=== PATIENT | male | born 1980 | race African-American/Black ===

== ENCOUNTER 2017-06-21 11:39 | Inpatient (IN) | payer OTHER ==
[2017-06-21 12:47] VITALS: BMI 29.2
--- NOTE | 2017-06-21 13:20 | HP ---
COWS - Scale Resting Pulse: 0= [place] 80 or Below Sweatin= Chills/Flushing Restless Observation: 3= Extraneous Movement Pupil Size: 2= Moderately Dilated Bone or Joint Aches: 2= Severe Diffuse Aches Runny Nose/ Eye Tearin= Runny Nose/Eyes GI Upset > 30mins: 3= Vomiting/Diarrhea Tremor Observation: 2= Slight Tremor Visible Yawning Observation: 2= >3x During Session Anxiety or Irritability: 2=Irritable/Anxious Goose Flesh Skin: 0=Smooth Skin COWS Score: 19 Admission ROS S - HPI Chief Complaint: I NEED HELP TO STOP USING HEROIN Allergies/Adverse Reactions: Allergies Allergy/AdvReac Type Severity Reaction Status Date / Time No Known Allergies Allergy Verified 06/21/17 13:13 History of Present Illness: THIS 36 YEARS OLD MALE WITH HEROIN DEPENDENCE,WITHDRAWAL SYMPTOM,SEEKING DETOX, NEVER BEEN IN DETOX BEFORE NICOTINE DEPENDENCE S/P REPAIR OF RIGHT INGUINAL HERNIA Exam Limitations: No Limitations - Ebola screening Have you traveled outside of the country in the last 21 days: No Have you had contact with anyone from an Ebola affected area: No Have you been sick,other than usual withdrawal symptoms: No Do you have a fever: No - Review of Systems Constitutional: Chills, Diaphoresis, Loss of Appetite, Malaise, Night Sweats, Changes in sleep, Weakness, Unintentional Wgt. Loss EENT: reports: Tearing, Nose Congestion Respiratory: reports: No Symptoms reported Cardiac: reports: No Symptoms Reported GI: reports: Diarrhea, Nausea, Vomiting (S/P REPAIR RIGHT INGUINAL HERNIA), Abdominal cramping : reports: No Symptoms Reported Musculoskeletal: reports: Back Pain, Joint Pain, Muscle Pain, Joint Stiffness Neuro: reports: Headache, Tremors Endocrine: reports: No Symptoms Reported Hematology: reports: No Symptoms Reported Psychiatric: reports: Depressed Patient History - Patient Medical History Hx Anemia: No Hx Asthma: No Hx Chronic Obstructive Pulmonary Disease (COPD): No Hx Cancer: No Hx Cardiac Disorders: No Hx Congestive Heart Failure: No Hx Hypertension: No Hx Hypercholesterolemia: No Hx Pacemaker: No HX Cerebrovascular Accident: No Hx Seizures: No Hx Dementia: No Hx Diabetes: No Hx Gastrointestinal Disorders: No Hx Liver Disease: No Hx Genitourinary Disorders: No Hx Sexually Transmitted Disorders: No Hx Renal Disease (ESRD): No Hx Thyroid Disease: No Hx Human Immunodeficiency Virus (HIV): No (2014 NEGATIVE) Hx Hepatitis C: No Hx Depression: Yes Hx Suicide Attempt: No Hx Bipolar Disorder: No Hx Schizophrenia: No Other Medical History: NO SUICIDAL,NO HOMICIDAL - Patient Surgical History Past Surgical History: Yes Other Surgical History: RIGHT INGUINAL HERNIA REPAIR OF 6 YEARS - PPD History Previous Implant?: No Documented Results: Negative w/o proof Implanted On Prior [facility] Admission?: Yes PPD to be Administered?: No - Smoking Cessation Smoking history: Current every day smoker Have you smoked in the past 12 months: Yes Aproximately how many cigarettes per day: 20 Cigars Per Day: 0 Hx Chewing Tobacco Use: No Initiated information on smoking cessation: Yes 'Breaking Loose' booklet given: 06/21/17 - Substance & Tx. History Hx Alcohol Use: No Hx Substance Use: Yes Substance Use Type: Heroin Hx Substance Use Treatment: No Family Disease History - Family Disease History Family History: Denies Admission Physical Exam [facility] - Vital Signs Vital Signs: Vital Signs - 24 hr 06/21/17 12:42 Temperature 97 F L Pulse Rate 75 Respiratory 20 Rate Blood Pressure 106/60 - Physical General Appearance: Yes: Moderate Distress, Tremorous, Irritable, Sweating, Anxious HEENTM: Yes: Normal ENT Inspection, Normocephalic, BARBARA, Pharynx Normal Respiratory: Yes: Lungs Clear, Normal Breath Sounds, No Respiratory Distress Neck: Yes: Within Normal Limits, Supple, Trachea in good position Breast: Yes: Within Normal Limits Cardiology: Yes: Within Normal Limits, Regular Rhythm, Regular Rate, S1, S2 Abdominal: Yes: Within Normal Limits, Normal Bowel Sounds, Non Tender, Flat, Soft Genitourinary: Yes: Within Normal Limits Back: Yes: Within Normal Limits, Normal Inspection, Muscle Spasm Musculoskeletal: Yes: Back pain, Joint Stiffness, Muscle Pain Extremities: Yes: Normal Capillary Refill, Normal Range of Motion, Tremors Neurological: Yes: Within Normal Limits, billing specialist II-XII NML intact, Fully Oriented, Alert, Motor Strength 5/5 Integumentary: Yes: Dry Lymphatic: Yes: Within Normal Limits - Diagnostic (1) Opioid dependence with withdrawal Current Visit: Yes Status: Acute (2) Nicotine dependence Current Visit: Yes Status: Acute (3) Weight loss Current Visit: Yes Status: Acute (4) Depression Current Visit: Yes Status: Acute (5) Insomnia Current Visit: Yes Status: Acute Cleared for Admission [facility] - Detox or Rehab [facility] Level of Care: Medically Managed Detox Regimen/Protocol: Methadone [facility] Breath Alcohol Content Breath Alcohol Content: 0 Urine Drug Screen - Results Drug Screen Negative: No Urine Drug Screen Results: THC-Marijuana, STACIE-Cocaine, OPI-Opiates
[2017-06-21] MEDS ORDERED: MAGNESIUM HYDROX 2400MG/30ML ORAL SUSPENSION 30 ML CUP PO PRN (13:29)
[2017-06-21] MEDS ORDERED: MENTHOL/PHENOL 1 EACH UD MM PRN (13:29)
[2017-06-21] MEDS ORDERED: MAGNESIUM CITRATE 300 ML BOTTLE PO PRN (13:29)
[2017-06-21] MEDS ORDERED: hydrOXYzine PAMOATE 25 MG CAPSULE (FP) PO PRN (13:29)
[2017-06-21] MEDS ORDERED: MAG HYDROX/AL HYDROX/SIMETH 30 ML UNIT-DOSE CUP PO PRN (13:29)
[2017-06-21] MEDS ORDERED: LOPERAMIDE HCL 2 MG CAPSULE PO PRN (13:29)
[2017-06-21] MEDS ORDERED: ACETAMINOPHEN 325 MG TABLET (FP) PO PRN (13:29)
[2017-06-21] MEDS ORDERED: guaiFENesin/D-METHORPHAN HB 10 ML UNIT-DOSE CUPS PO PRN (13:29)
[2017-06-21] MEDS ORDERED: IBUPROFEN 400 MG TABLET (FP) PO PRN (13:29)
[2017-06-21] MEDS ORDERED: P-EPHED 60MG/TRIPROLIDI 2.5MG TABLET PO PRN (13:29)
[2017-06-21] MEDS ORDERED: METHADONE HCL 10 MG TABLET (FOR DETOX USE ONLY) PO ONE ×2 (14:05→23:00)
[2017-06-21] MEDS: NICOTINE 21 MG/24 HOURS TOPICAL PATCH TD SCH (15:25)
[2017-06-21] MEDS: cloNIDine HCL 0.1 MG TABLET PO SCH ×2 (15:25→22:21)
[2017-06-21] MEDS: diazePAM 5 MG TABLET PO PRN ×2 (15:25→22:21)
--- NOTE | 2017-06-21 15:27 | CONSULT ---
[facility] Psychiatric Consult - Data Date of interview: 06/21/17 Admission source: [facility] Identifying data: First admission to [facility] for this 36 y/o [place]-born male seeking detox treatment on for heroin,cocaine and cannabis dependence.Patient is ,a father of four,domiciled,unemployed and supported by relatives. Substance Abuse History: Confirmed by patient in this interview.Smoking history : Current every day smoker. Have you smoked in the past 12 months: Yes. Aproximately how many cigarettes per day: 20. Cigars Per Day: 0. Hx Chewing Tobacco Use: No. Initiated information on smoking cessation: Yes. 'Breaking Loose' booklet given: 06/21/17. - Substance & Tx. History. Hx Alcohol Use: No. Hx Substance Use: Yes. Substance Use Type: Heroin. Hx Substance Use Treatment: No Medical History: Patient endorses good general health.Noted history of right inguinal herniorraphy. Psychiatric History: Patient denies. Physical/Sexual Abuse/Trauma History: Patient denies. Additional Comment: Urine Drug Screen Results: THC-Marijuana, STACIE-Cocaine, OPI- Opiates.Noted. Mental Status Exam - Mental Status Exam Alert and Oriented to: Time, Place, Person Cognitive Function: Good Patient Appearance: Well Groomed Mood: Hopeful, Euthymic Affect: Appropriate, Normal Range Patient Behavior: Fatigued, Appropriate, Cooperative Speech Pattern: Clear, Appropriate Voice Loudness: Normal Thought Process: Intact, Goal Oriented Thought Disorder: Not Present Hallucinations: Denies Suicidal Ideation: Denies Homicidal Ideation: Denies Insight/Judgement: Poor Sleep: Poorly, Difficulty falling asleep Appetite: Good Muscle strength/Tone: Normal Gait/Station: Normal Psychiatric Findings - Problem List ([place] 1, 2,3) (1) Opioid dependence with withdrawal Current Visit: Yes Status: Acute (2) Nicotine dependence Current Visit: Yes Status: Acute (3) Cannabis dependence Current Visit: Yes Status: Acute (4) Cocaine dependence Current Visit: Yes Status: Acute (5) Insomnia Current Visit: Yes Status: Acute - Initial Treatment Plan Initial Treatment Plan: Psychoeducation and support provided in this session.Orientation to the unit.Sleep hygiene discussed with the patient.Detoxification initiated.Benadryl 50 mg po hs prn.Ordered.Side effects/ benefits discussed.Mr Rivers is agreable with this careplan.Daily monitoring of clinical course.
--- NOTE | 2017-06-21 15:47 | EKG ---
Test Reason : Blood Pressure : / mmHG Vent. Rate : 063 BPM Atrial Rate : 063 BPM P-R Int : 180 ms QRS Dur : 108 ms QT Int : 424 ms P-R-T Axes : 052 065 059 degrees QTc Int : 433 ms NORMAL SINUS RHYTHM NORMAL ECG NO PREVIOUS ECGS AVAILABLE Confirmed by SAURABH COLUNGA, MIRLANDE ([id number]) on 06/21/2017 3:47:27 PM Referred By: Confirmed By:MIRLANDE WILEY MD
[2017-06-21] MEDS ORDERED: diphenhydrAMINE HCL 50 MG CAPSULE PO PRN (22:00)
[2017-06-21] MEDS: THIAMINE HCL 100 MG TABLET (FP) PO SCH (22:20)
[2017-06-21] MEDS: CYCLOBENZAPRINE HCL 10 MG TABLET (FP) PO PRN (22:21)
[2017-06-21] MEDS: NICOTINE POLACRILEX 2 MG GUM BUC PRN (22:25)
[2017-06-21] MEDS ORDERED: TRIMETHOBENZAMIDE HCL 200MG/2ML INJ IM ONE (23:02)
[2017-06-21 23:41] LABS: URINE APPEARANCE CLOUDY; URINE BILIRUBIN NEGATIVE (NEGATIVE); URINE BLOOD NEGATIVE (NEGATIVE); URINE COLOR YELLOW; URINE GLUCOSE (UA) NEGATIVE (NEGATIVE); URINE KETONE NEGATIVE (NEGATIVE); URINE LEUK ESTERASE NEGATIVE (NEGATIVE); URINE NITRITE NEGATIVE (NEGATIVE); URINE PROTEIN NEGATIVE (NEGATIVE)
[2017-06-22] MEDS ORDERED: METHADONE HCL 10 MG TABLET (FOR DETOX USE ONLY) PO ONE (10:00)
[2017-06-22 10:23] LABS: HEMATOCRIT 37.7 % (35.4-49); MCH 22.9 pg (25.7-33.7); MCHC 31.7 g/dl (32.0-35.9); MEAN CELL VOLUME 72.1 fl (80-96); MEAN PLT VOLUME 8.9 fl (7.5-11.1); PLATELET COUNT 218 K/MM3 (134-434); RBC 5.24 M/mm3 (4.00-5.60); RDW 15.7 % (11.9-15.9); WHITE BLOOD COUNT 9.8 K/mm3 (4.0-10.0)
[2017-06-22 10:39] LABS: CHLORIDE 103 mmol/L (98-107); POTASSIUM 3.9 mmol/L (3.5-5.1); SODIUM 140 mmol/L (136-145)
[2017-06-22] MEDS: PRENATAL VITAMINS W/ FOLIC ACID TABLET (FP) PO SCH (10:39)
[2017-06-22] MEDS: NICOTINE 21 MG/24 HOURS TOPICAL PATCH TD SCH (10:40)
[2017-06-22] MEDS: cloNIDine HCL 0.1 MG TABLET PO SCH ×2 (10:42→22:28)
[2017-06-22 10:48] LABS: ALBUMIN 4.1 g/dl (3.4-5.0); ALK PHOS 84 U/L (45-117); ANION GAP 4 (8-16); BILIRUBIN,TOTAL 0.3 mg/dL (0.2-1.0); BLOOD UREA NITROGEN 14 mg/dL (7-18); CALCIUM 9.1 mg/dL (8.5-10.1); CO2 33 mmol/L (21-32); CREATININE 0.9 mg/dL (0.7-1.3); GLUCOSE,RANDOM 110 mg/dL (74-106); SGOT/AST 8 U/L (15-37); SGPT/ALT 21 U/L (12-78); TOT PROT 7.1 g/dl (6.4-8.2)
--- NOTE | 2017-06-22 12:35 | PN ---
[facility] CIWA - CIWA Score Nausea/Vomitin-Mild Nausea/No Vomiting Muscle Tremors: 3 Anxiety: 4-Mod. Anxious/Guarded Agitation: 3 Paroxysmal Sweats: 1-Minimal Palms Moist Orientation: 0-Oriented Tacttile Disturbances: 1-Very Mild Itch/Numbness Auditory Disturbances: 0-None Visual Disturbances: 0-None Headache: 1-Very Mild CIWA-Ar Total Score: 14
--- NOTE | 2017-06-22 12:40 | PN ---
[facility] Progress Note (SOAP) Subjective: PT SEEN TODAY LYING IN BED, WITH C/O OF FATIGUE AND RESTLESSNESS. Objective: 06/22/17 12:37 PT IN NAD. Assessment: 06/22/17 12: OPIATE WITHDRAWAL. Plan: CONTINUE OPIATE WITHDRAWAL PROTOCOL.
[2017-06-22] MEDS: NICOTINE POLACRILEX 2 MG GUM BUC PRN (21:32)
[2017-06-22] MEDS: diazePAM 5 MG TABLET PO PRN (22:28)
[2017-06-22] MEDS: CYCLOBENZAPRINE HCL 10 MG TABLET (FP) PO PRN (22:28)
[2017-06-22] MEDS: THIAMINE HCL 100 MG TABLET (FP) PO SCH (22:28)
[2017-06-23] MEDS: diazePAM 5 MG TABLET PO PRN ×3 (09:05→22:24)
[2017-06-23] MEDS ORDERED: METHADONE HCL 5 MG TABLET (FOR DETOX USE ONLY) PO ONE (10:00)
[2017-06-23] MEDS: PRENATAL VITAMINS W/ FOLIC ACID TABLET (FP) PO SCH (10:05)
[2017-06-23] MEDS: cloNIDine HCL 0.1 MG TABLET PO SCH (10:06)
[2017-06-23] MEDS: NICOTINE 21 MG/24 HOURS TOPICAL PATCH TD SCH (10:35)
--- NOTE | 2017-06-23 16:59 | PN ---
S COWS - Scale Resting Pulse: 0= [place] 80 or Below Sweatin=Flushed/Facial Moisture Restless Observation: 0= Sits Still Pupil Size: 2= Moderately Dilated Bone or Joint Aches: 1= Mild Discomfort Runny Nose/ Eye Tearin= Nasal Congestion GI Upset > 30mins: 0= None Tremor Observation of Outstretched Hands: 2= Slight Tremor Visible Yawning Observation: 1= 1-2x During Session Anxiety or Irritability: 2=Irritable/Anxious Goose Flesh Skin: 0=Smooth Skin COWS Score: 11 S Progress Note (SOAP) Subjective: C/O SWEATS, ANXIETY. FATIGUE. Objective: 06/23/17 16:56 Vital Signs Temperature 97.3 F L 06/23/17 09:22 Pulse Rate 65 06/23/17 09:22 Respiratory Rate 18 06/23/17 09:22 Blood Pressure 92/62 06/23/17 09:22 O2 Sat by Pulse Oximetry (%) Laboratory Last Values WBC 9.8 K/mm3 (4.0-10.0) 06/22/17 06:00 RBC 5.24 M/mm3 (4.00-5.60) 06/22/17 06:00 Hgb 12.0 GM/dL (11.7-16.9) 06/22/17 06:00 Hct 37.7 % (35.4-49) 06/22/17 06:00 MCV 72.1 fl (80-96) L 06/22/17 06:00 MCH 22.9 pg (25.7-33.7) L 06/22/17 06:00 MCHC 31.7 g/dl (32.0-35.9) L 06/22/17 06:00 RDW 15.7 % (11.9-15.9) 06/22/17 06:00 Plt Count 218 K/MM3 (134-434) 06/22/17 06:00 MPV 8.9 fl (7.5-11.1) 06/22/17 06:00 Sodium 140 mmol/L (136-145) 06/22/17 06:00 Potassium 3.9 mmol/L (3.5-5.1) 06/22/17 06:00 Chloride 103 mmol/L (98-107) 06/22/17 06:00 Carbon Dioxide 33 mmol/L (21-32) H 06/22/17 06:00 Anion Gap 4 (8-16) L 06/22/17 06:00 BUN 14 mg/dL (7-18) 06/22/17 06:00 Creatinine 0.9 mg/dL (0.7-1.3) 06/22/17 06:00 Creat Clearance w eGFR > 60 (>60) 06/22/17 06:00 Random Glucose 110 mg/dL (74-106) H 06/22/17 06:00 Calcium 9.1 mg/dL (8.5-10.1) 06/22/17 06:00 Total Bilirubin 0.3 mg/dL (0.2-1.0) 06/22/17 06:00 AST 8 U/L (15-37) L 06/22/17 06:00 ALT 21 U/L (12-78) 06/22/17 06:00 Alkaline Phosphatase 84 U/L (45-117) 06/22/17 06:00 Total Protein 7.1 g/dl (6.4-8.2) 06/22/17 06:00 Albumin 4.1 g/dl (3.4-5.0) 06/22/17 06:00 Urine Color Yellow 06/21/17 23:25 Urine Appearance Cloudy 06/21/17 23:25 Urine pH 5.0 (5.0-8.0) 06/21/17 23:25 Ur Specific [place] 1.025 (1.001-1.035) 06/21/17 23:25 Urine Protein Negative (NEGATIVE) 06/21/17 23:25 Urine Glucose (UA) Negative (NEGATIVE) 06/21/17 23:25 Urine Ketones Negative (NEGATIVE) 06/21/17 23:25 Urine Blood Negative (NEGATIVE) 06/21/17 23:25 Urine Nitrite Negative (NEGATIVE) 06/21/17 23:25 Urine Bilirubin Negative (NEGATIVE) 06/21/17 23:25 Urine Urobilinogen 2.0 mg/dL (0.2-1.0) 06/21/17 23:25 Ur Leukocyte Esterase Negative (NEGATIVE) 06/21/17 23:25 RPR Titer Nonreactive (NONREACTIVE) 06/22/17 06:00 HIV 1&2 Antibody Screen Negative 06/22/17 06:00 HIV P24 Antigen Negative 06/22/17 06:00 Assessment: 06/23/17 16:56 WITHDRAWAL SX Plan: CONTINUE DETOX INCREASE PO FLUIDS. CHANGE CLONIDINE TO PRN.
[2017-06-23] MEDS ORDERED: cloNIDine HCL 0.1 MG TABLET PO PRN (22:00)
[2017-06-23] MEDS: THIAMINE HCL 100 MG TABLET (FP) PO SCH (22:23)
[2017-06-23] MEDS: CYCLOBENZAPRINE HCL 10 MG TABLET (FP) PO PRN (22:24)
[2017-06-24 05:56] VITALS: BP 90/56; PULSE 54; TEMP 97.2
[2017-06-24] MEDS ORDERED: METHADONE HCL 10 MG TABLET (FOR DETOX USE ONLY) PO ONE (09:03)
[2017-06-24] MEDS: PRENATAL VITAMINS W/ FOLIC ACID TABLET (FP) PO SCH (09:46)
[2017-06-24] MEDS ORDERED: METHADONE HCL 5 MG TABLET (FOR DETOX USE ONLY) PO ONE (10:00)
[2017-06-24] MEDS: NICOTINE 21 MG/24 HOURS TOPICAL PATCH TD SCH (10:34)
--- NOTE | 2017-06-24 19:14 | DS ---
[facility] Detox Discharge Summary Admission Date: 06/21/17 Discharge Date: 06/24/17 - History Present History: Cannabis Dependence, Opioid Dependence Additional Comments: AT TIME OF DISCHARGE, PATIENT REPORTS THAT CURRENT DETOX SYMPTOMS ARE MINIMAL AND THAT HE FEELS WELL OVERALL. PATIENT RETURNING HOME TO RETURN TO WORK. PATIENT ADVISED TO CONSIDER LOCAL 12-STEP / NA OUTPATIENT SUPPORT GROUPS FOR AFTERCARE. PATIENT WAS DISCHARGED FROM DETOX UNIT IN STABLE MEDICAL CONDITION. Pertinent Past History: Depression, Insomnia, Weight Loss, Nicotine Dependence. - Physical Exam Results Vital Signs: Vital Signs Temperature 97.2 F L 06/24/17 05:55 Pulse Rate 54 L 06/24/17 05:55 Respiratory Rate 16 06/24/17 05:55 Blood Pressure 90/56 06/24/17 05:55 O2 Sat by Pulse Oximetry (%) Pertinent Admission Physical Exam Findings: WITHDRAWAL SYMPTOMS. Laboratory Tests 06/21/17 06/22/17 06/22/17 23:25 06:00 06:00 WBC 9.8 RBC 5.24 Hgb 12.0 Hct 37.7 MCV 72.1 L MCH 22.9 L MCHC 31.7 L RDW 15.7 Plt Count 218 MPV 8.9 Sodium Potassium Chloride Carbon Dioxide Anion Gap BUN Creatinine Creat Clearance w eGFR Random Glucose Calcium Total Bilirubin AST ALT Alkaline Phosphatase Total Protein Albumin Urine Color Yellow Urine Appearance Cloudy Urine pH 5.0 Ur Specific [place] 1.025 Urine Protein Negative Urine Glucose (UA) Negative Urine Ketones Negative Urine Blood Negative Urine Nitrite Negative Urine Bilirubin Negative Urine Urobilinogen 2.0 Ur Leukocyte Esterase Negative RPR Titer HIV 1&2 Antibody Screen Negative HIV P24 Antigen Negative 06/22/17 06/22/17 06:00 06:00 WBC RBC Hgb Hct MCV MCH MCHC RDW Plt Count MPV Sodium 140 Potassium 3.9 Chloride 103 Carbon Dioxide 33 H Anion Gap 4 L BUN 14 Creatinine 0.9 Creat Clearance w eGFR > 60 Random Glucose 110 H Calcium 9.1 Total Bilirubin 0.3 AST 8 L ALT 21 Alkaline Phosphatase 84 Total Protein 7.1 Albumin 4.1 Urine Color Urine Appearance Urine pH Ur Specific [place] Urine Protein Urine Glucose (UA) Urine Ketones Urine Blood Urine Nitrite Urine Bilirubin Urine Urobilinogen Ur Leukocyte Esterase RPR Titer Nonreactive HIV 1&2 Antibody Screen HIV P24 Antigen LABS NOTED. - Treatment Hospital Course: Detox Protocol Followed, Detoxed Safely, Responded well, Discharged Condition Good Patient has Accepted a Rehab Referral to: NO. PT. ADVISED TO CONSIDER LOCAL 12- STEP/NA OUTPATIENT SUPPORT GROUPS. - Medication Discharge Medications: Ambulatory Orders NK [No Known Home Medication] 06/21/17 - Diagnosis (1) Cannabis dependence Status: Acute (2) Cocaine dependence Status: Acute Qualifiers: Substance use status: uncomplicated Qualified Code(s): F14.20 - Cocaine dependence, uncomplicated (3) Insomnia Status: Acute Qualifiers: Insomnia type: unspecified Qualified Code(s): G47.00 - Insomnia, unspecified (4) Nicotine dependence Status: Acute Qualifiers: Nicotine product type: cigarettes Substance use status: uncomplicated Qualified Code(s): F17.210 - Nicotine dependence, cigarettes, uncomplicated (5) Opioid dependence with withdrawal Status: Acute (6) Weight loss Status: Acute (7) Depression Status: Acute Qualifiers: Depression Type: unspecified Qualified Code(s): F32.9 - Major depressive disorder, single episode, unspecified - AMA Did Patient Leave Against Medical Advice: No
[2017-06-25] MEDS ORDERED: METHADONE HCL 10 MG TABLET (FOR DETOX USE ONLY) PO ONE (10:00)
[2017-06-26] MEDS ORDERED: METHADONE HCL 5 MG TABLET (FOR DETOX USE ONLY) PO ONE (06:00)
== END 2017-06-24 09:55 | disposition home or self-care (01) | DRG 773 ==
LOC: YASAS 11:39 → Y3N 13:54
PROVIDERS: ADMIT Internal Medicine; ATTEND Internal Medicine
PROC: HZ2ZZZZ Detoxification Services for Substance Abuse Treatment (ICD-10-PCS; principal; 2017-06-21)
DX: F11.23 Opioid dependence with withdrawal (principal); F14.20 Cocaine dependence, uncomplicated; F12.20 Cannabis dependence, uncomplicated; F17.210 Nicotine dependence, cigarettes, uncomplicated; F32.9 Major depressive disorder, single episode, unspecified; R63.4 Abnormal weight loss; Z68.29 Body mass index [BMI] 29.0-29.9, adult
CPT/HCPCS: 36415; 80053; 81003; 85027; 86593; 87389; 93005; 93010; J0735

== ENCOUNTER 2017-10-08 09:16 | Inpatient (IN) | payer OTHER ==
[2017-10-08 09:51] VITALS: BMI 27.9
--- NOTE | 2017-10-08 10:41 | HP ---
COWS - Scale Resting Pulse: 0= [place] 80 or Below Sweatin=Flushed/Facial Moisture Restless Observation: 0= Sits Still Pupil Size: 0= Normal to Room Light Bone or Joint Aches: 2= Severe Diffuse Aches Runny Nose/ Eye Tearin= Runny Nose/Eyes GI Upset > 30mins: 2= Nausea/Diarrhea Tremor Observation: 2= Slight Tremor Visible Yawning Observation: 2= >3x During Session Anxiety or Irritability: 1=Feels Anxious/Irritable Goose Flesh Skin: 3=Piloerection COWS Score: 16 Admission ROS S - HPI Chief Complaint: "I want detox from heroin" Allergies/Adverse Reactions: Allergies Allergy/AdvReac Type Severity Reaction Status Date / Time No Known Allergies Allergy Verified 10/08/17 09:50 History of Present Illness: 36 y/o male with a one year history of heroin addiction requesting detox. Pt stated he started last year. Was here last in May and this is his second time of seeking detox. Last used yesterday morning. Denies any remarkable hx. Denies current SI Exam Limitations: Physical Impairment - Ebola screening Have you traveled outside of the country in the last 21 days: No (N) Have you had contact with anyone from an Ebola affected area: No Have you been sick,other than usual withdrawal symptoms: No Do you have a fever: No - Review of Systems Constitutional: Loss of Appetite, Weakness EENT: reports: No Symptoms Reported Respiratory: reports: No Symptoms reported Cardiac: reports: No Symptoms Reported GI: reports: Nausea, Abdominal cramping : reports: Other (ocassional oliguria) Musculoskeletal: reports: Back Pain, Joint Pain, Other (generalized joint pain) Integumentary: reports: No Symptoms Reported Neuro: reports: Weakness Endocrine: reports: Flushing Hematology: reports: No Symptoms Reported Psychiatric: reports: Orientated x3, Depressed Other Systems: Reviewed and Negative Patient History - Patient Medical History Hx Anemia: No Hx Asthma: No Hx Chronic Obstructive Pulmonary Disease (COPD): No Hx Cancer: No Hx Cardiac Disorders: No Hx Congestive Heart Failure: No Hx Hypertension: No Hx Hypercholesterolemia: No Hx Pacemaker: No HX Cerebrovascular Accident: No Hx Seizures: No Hx Dementia: No Hx Diabetes: No Hx Gastrointestinal Disorders: No Hx Liver Disease: No Hx Genitourinary Disorders: No Hx Sexually Transmitted Disorders: No Hx Renal Disease (ESRD): No Hx Thyroid Disease: No Hx Human Immunodeficiency Virus (HIV): No (2018 NEGATIVE) Hx Hepatitis C: No Hx Depression: Yes (Ocassional, not on meds) Hx Suicide Attempt: No Hx Bipolar Disorder: No Hx Schizophrenia: No - Patient Surgical History Past Surgical History: Yes Hx Neurologic Surgery: No Hx Cataract Extraction: No Hx Cardiac Surgery: No Hx Lung Surgery: No Hx Breast Surgery: No Hx Breast Biopsy: No Hx Abdominal Surgery: No Hx Appendectomy: No Hx Cholecystectomy: No Hx Genitourinary Surgery: No Hx Section: No Hx Orthopedic Surgery: No Other Surgical History: RIGHT INGUINAL HERNIA REPAIR OF 6 YEARS Anesthesia Reaction: No - PPD History Previous Implant?: Yes Documented Results: Negative w/proof Implanted On Prior [facility] Admission?: Yes Date: 06/23/17 PPD to be Administered?: No - Reproductive History Patient is a Female of Child Bearing Age (11 -55 yrs old): No - Smoking Cessation Smoking history: Current every day smoker Have you smoked in the past 12 months: Yes Aproximately how many cigarettes per day: 20 Cigars Per Day: 0 Hx Chewing Tobacco Use: No Initiated information on smoking cessation: Yes 'Breaking Loose' booklet given: 10/08/17 - Substance & Tx. History Hx Alcohol Use: Yes ("a little bit") Hx Substance Use: Yes Substance Use Type: Cocaine, Heroin, Marijuana Hx Substance Use Treatment: Yes - Substances Abused Heroin Route: Inhalation Frequency: Daily Amount used: 10bags Age of first use: 35 Date of Last Use: 10/07/17 Crack Route: Smoking Frequency: Daily Amount used: 4 - 5 g Age of first use: 36 Date of Last Use: 10/07/17 Family Disease History - Family Disease History Family Disease History: Heart Disease: Mother (HTN), Other: Father (, liver Ca), Mother Admission Physical Exam [facility] - Vital Signs Vital Signs: Vital Signs - 24 hr 10/08/17 09:49 Temperature 97.3 F L Pulse Rate 72 Respiratory 18 Rate Blood Pressure 105/65 - Physical General Appearance: Yes: Moderate Distress, Anxious HEENTM: Yes: Nasal Congestion Respiratory: Yes: Chest Non-Tender, Lungs Clear Neck: Yes: No masses,lesions,Nodules, Trachea in good position Breast: Yes: Breast Exam Deferred Cardiology: Yes: Regular Rate Abdominal: Yes: Normal Bowel Sounds, Non Tender Genitourinary: Yes: Within Normal Limits Back: Yes: Normal Inspection Musculoskeletal: Yes: full range of Motion Extremities: Yes: Normal Capillary Refill, Normal Inspection Neurological: Yes: Fully Oriented, Alert Integumentary: Yes: Warm Lymphatic: Yes: Within Normal Limits - Diagnostic (1) Opioid dependence with withdrawal Current Visit: No Status: Acute (2) Nicotine dependence, uncomplicated Current Visit: Yes Status: Acute (3) Cocaine dependence, uncomplicated Current Visit: Yes Status: Acute (4) Depressed affect Current Visit: Yes Status: Acute Cleared for Admission [facility] - Detox or Rehab [facility] Level of Care: Medically Managed Detox Regimen/Protocol: Methadone [facility] Breath Alcohol Content Breath Alcohol Content: 0 Urine Drug Screen - Results Drug Screen Negative: No Urine Drug Screen Results: STACIE-Cocaine, OPI-Opiates
[2017-10-08] MEDS ORDERED: IBUPROFEN 400 MG TABLET (FP) PO PRN (11:01)
[2017-10-08] MEDS ORDERED: ACETAMINOPHEN 325 MG TABLET (FP) PO PRN (11:01)
[2017-10-08] MEDS ORDERED: MAGNESIUM CITRATE 300 ML BOTTLE PO PRN (11:01)
[2017-10-08] MEDS ORDERED: MAGNESIUM HYDROX 2400MG/30ML ORAL SUSPENSION 30 ML CUP PO PRN (11:01)
[2017-10-08] MEDS ORDERED: MAG HYDROX/AL HYDROX/SIMETH 30 ML UNIT-DOSE CUP PO PRN (11:01)
[2017-10-08] MEDS ORDERED: LOPERAMIDE HCL 2 MG CAPSULE PO PRN (11:01)
[2017-10-08] MEDS ORDERED: P-EPHED 60MG/TRIPROLIDI 2.5MG TABLET PO PRN (11:01)
[2017-10-08] MEDS ORDERED: hydrOXYzine PAMOATE 50 MG CAPSULE (FP) PO PRN (11:01)
[2017-10-08] MEDS ORDERED: guaiFENesin/D-METHORPHAN HB 10 ML UNIT-DOSE CUPS PO PRN (11:01)
[2017-10-08] MEDS ORDERED: MENTHOL/PHENOL 1 EACH UD MM PRN (11:01)
[2017-10-08] MEDS ORDERED: NICOTINE POLACRILEX 2 MG GUM BUC PRN (11:01)
[2017-10-08] MEDS ORDERED: METHADONE HCL 10 MG TABLET (FOR DETOX USE ONLY) PO ONE ×2 (12:15→23:00)
[2017-10-08] MEDS: diazePAM 5 MG TABLET PO PRN ×2 (13:01→22:27)
[2017-10-08] MEDS: NICOTINE 21 MG/24 HOURS TOPICAL PATCH TD SCH (13:02)
[2017-10-08 16:02] LABS: URINE APPEARANCE CLEAR; URINE BILIRUBIN NEGATIVE (<2.0 mg/dL); URINE BLOOD NEGATIVE (NEGATIVE); URINE COLOR LTYELLOW; URINE GLUCOSE (UA) NEGATIVE (NEGATIVE); URINE KETONE NEGATIVE (NEGATIVE); URINE LEUK ESTERASE NEGATIVE (NEGATIVE); URINE NITRITE NEGATIVE (NEGATIVE); URINE PROTEIN NEGATIVE (NEGATIVE); URINE UROBILINOGEN NEGATIVE mg/dL (0.2-1.0)
[2017-10-08] MEDS: MELATONIN 5 MG TABLETS PO PRN (22:28)
[2017-10-08] MEDS: THIAMINE HCL 100 MG TABLET (FP) PO SCH (22:29)
--- NOTE | 2017-10-09 09:26 | CONSULT ---
[facility] Psychiatric Consult - Data Date of interview: 10/09/17 Admission source: [facility] Identifying data: This is n 36 years old male, , father of four, living separately with GF, unemployed, with a one year history of heroin addiction, alcohol Crack and Nicotine abuse /depndence as well. requesting detox treatment reportinsg withdrawal symptoms. Substance Abuse History: Smoking history: Current every day smoker. Have you smoked in the past 12 months: Yes. Aproximately how many cigarettes per day: 20. Cigars Per Day: 0. Hx Chewing Tobacco Use: No. Initiated information on smoking cessation: Yes. 'Breaking Loose' booklet given: 10/08/17. - Substance & Tx. History. Hx Alcohol Use: Yes ("a little bit"). Hx Substance Use: Yes. Substance Use Type: Cocaine, Heroin, Marijuana. Hx Substance Use Treatment: Yes. - Substances Abused. Heroin. Route: Inhalation. Frequency: Daily. Amount used: 10bags. Age of first use: 35. Date of Last Use: 10/07/17. Crack. Route: Smoking. Frequency: Daily. Amount used: 4 - 5 g. Age of first use: 36. Date of Last Use: 10/07/17 Medical History: Denies significant medical problems Psychiatric History: Denies past psychiatric history Physical/Sexual Abuse/Trauma History: Denies Additional Comment: Observation. Detox Unit Care Protocol Mental Status Exam - Mental Status Exam Alert and Oriented to: Person Cognitive Function: Fair Patient Appearance: Unkempt Affect: Flat Patient Behavior: Sedated Speech Pattern: Delayed Voice Loudness: Mildly Soft/Quiet Thought Process: Circumstantial Thought Disorder: Being Controlled Hallucinations: Denies Suicidal Ideation: Denies Homicidal Ideation: Denies Insight/Judgement: Fair Sleep: Difficulty falling asleep Appetite: Fair Muscle strength/Tone: Mild Hypotonicity Gait/Station: Shuffling Additional Comments: Observation. Detox Unit Care Protocol Psychiatric Findings - Problem List ([place] 1, 2,3) (1) Drug-induced mood disorder Current Visit: Yes Status: Acute (2) Cocaine dependence, uncomplicated Current Visit: Yes Status: Acute (3) Nicotine dependence, uncomplicated Current Visit: Yes Status: Acute (4) Cannabis dependence Current Visit: No Status: Acute (5) Cocaine dependence Current Visit: No Status: Acute Qualifiers: Substance use status: uncomplicated Qualified Code(s): F14.20 - Cocaine dependence, uncomplicated (6) Nicotine dependence Current Visit: No Status: Acute Qualifiers: Nicotine product type: cigarettes Substance use status: uncomplicated Qualified Code(s): F17.210 - Nicotine dependence, cigarettes, uncomplicated (7) Opioid dependence with withdrawal Current Visit: No Status: Acute - Initial Treatment Plan Initial Treatment Plan: Observation. Detox Unit Care Protocol
[2017-10-09] MEDS ORDERED: METHADONE HCL 10 MG TABLET (FOR DETOX USE ONLY) PO ONE (10:00)
[2017-10-09] MEDS: NICOTINE 21 MG/24 HOURS TOPICAL PATCH TD SCH (10:33)
[2017-10-09] MEDS: PRENATAL VITAMINS W/ FOLIC ACID TABLET (FP) PO SCH (10:33)
[2017-10-09] MEDS: diazePAM 5 MG TABLET PO PRN ×2 (10:36→22:34)
[2017-10-09 10:52] LABS: CHLORIDE 110 mmol/L (98-107); POTASSIUM 4.2 mmol/L (3.5-5.1); SODIUM 143 mmol/L (136-145)
[2017-10-09 11:02] LABS: HEMATOCRIT 37.1 % (35.4-49); HEMOGLOBIN 12.2 GM/dL (11.7-16.9); MCH 23.7 pg (25.7-33.7); MCHC 32.9 g/dl (32.0-35.9); MEAN CELL VOLUME 72.1 fl (80-96); MEAN PLT VOLUME 8.3 fl (7.5-11.1); PLATELET COUNT 201 K/MM3 (134-434); RBC 5.15 M/mm3 (4.00-5.60); RDW 14.5 % (11.9-15.9); WHITE BLOOD COUNT 6.2 K/mm3 (4.0-10.0)
[2017-10-09 11:05] LABS: ALBUMIN 3.4 g/dl (3.4-5.0); ALK PHOS 69 U/L (45-117); ANION GAP 5 (8-16); BILIRUBIN,TOTAL 0.3 mg/dL (0.2-1.0); BLOOD UREA NITROGEN 9 mg/dL (7-18); CALCIUM 8.5 mg/dL (8.5-10.1); CO2 28 mmol/L (21-32); CREATININE 0.8 mg/dL (0.7-1.3); GLUCOSE,RANDOM 89 mg/dL (74-106); SGOT/AST 7 U/L (15-37); SGPT/ALT 20 U/L (12-78)
--- NOTE | 2017-10-09 11:05 | PN ---
BHS COWS - Scale Resting Pulse: 0= ID 80 or Below Sweatin= Chills/Flushing Restless Observation: 3= Extraneous Movement Pupil Size: 1= Pupils >than Normal Bone or Joint Aches: 2= Severe Diffuse Aches Runny Nose/ Eye Tearin= Runny Nose/Eyes GI Upset > 30mins: 2= Nausea/Diarrhea Tremor Observation of Outstretched Hands: 2= Slight Tremor Visible Yawning Observation: 1= 1-2x During Session Anxiety or Irritability: 2=Irritable/Anxious Goose Flesh Skin: 0=Smooth Skin COWS Score: 16 S Progress Note (SOAP) Subjective: ALERT,IRRITABLE,ANXIOUS,INTERRUPTED SLEEP,TREMOR,PAIN IN THE BODY Objective: 10/09/17 11:02 Vital Signs Temperature 97.7 F 10/09/17 09:54 Pulse Rate 56 L 10/09/17 09:54 Respiratory Rate 16 10/09/17 09:54 Blood Pressure 100/58 10/09/17 09:54 O2 Sat by Pulse Oximetry (%) EKG NSR PROLONG QT 396/415 NO CHEST PAIN,NO SOB,NO DIZZINESS Laboratory Last Values Sodium 143 mmol/L (136-145) 10/09/17 07:00 Potassium 4.2 mmol/L (3.5-5.1) 10/09/17 07:00 Chloride 110 mmol/L (98-107) H 10/09/17 07:00 Urine Color Ltyellow 10/08/17 11:13 Urine Appearance Clear 10/08/17 11:13 Urine pH 5.0 (5.0-8.0) 10/08/17 11:13 Ur Specific [place] 1.019 (1.001-1.035) 10/08/17 11:13 Urine Protein Negative (NEGATIVE) 10/08/17 11:13 Urine Glucose (UA) Negative (NEGATIVE) 10/08/17 11:13 Urine Ketones Negative (NEGATIVE) 10/08/17 11:13 Urine Blood Negative (NEGATIVE) 10/08/17 11:13 Urine Nitrite Negative (NEGATIVE) 10/08/17 11:13 Urine Bilirubin Negative (<2.0 mg/dL) 10/08/17 11:13 Urine Urobilinogen Negative mg/dL (0.2-1.0) 10/08/17 11:13 Ur Leukocyte Esterase Negative (NEGATIVE) 10/08/17 11:13 LABS PENDING Assessment: 10/09/17 11:05 WITHDRAWAL SYMPTOM Plan: CONTINUE DETOX
[2017-10-09] MEDS: MELATONIN 5 MG TABLETS PO PRN (22:35)
[2017-10-09] MEDS: THIAMINE HCL 100 MG TABLET (FP) PO SCH (22:35)
--- NOTE | 2017-10-10 | EKG ---
Test Reason : Blood Pressure : / mmHG Vent. Rate : 066 BPM Atrial Rate : 066 BPM P-R Int : 158 ms QRS Dur : 116 ms QT Int : 396 ms P-R-T Axes : 044 072 063 degrees QTc Int : 415 ms NORMAL SINUS RHYTHM NORMAL ECG WHEN COMPARED WITH ECG OF 21-JUN-2017 15:14, NO SIGNIFICANT CHANGE WAS FOUND Confirmed by DIONE DOMINGUEZ MD ([id number]) on 10/10/2017 12:00:13 AM Referred By: Confirmed By:DIONE DOMINGUEZ MD
[2017-10-10 09:12] VITALS: BP 107/61; PULSE 65; TEMP 97.7
[2017-10-10] MEDS ORDERED: METHADONE HCL 5 MG TABLET (FOR DETOX USE ONLY) PO ONE (10:00)
--- NOTE | 2017-10-10 10:44 | PN ---
BHS COWS - Scale Resting Pulse: 0= [place] 80 or Below Sweatin= Chills/Flushing Restless Observation: 3= Extraneous Movement Pupil Size: 1= Pupils >than Normal Bone or Joint Aches: 2= Severe Diffuse Aches Runny Nose/ Eye Tearin= Runny Nose/Eyes GI Upset > 30mins: 2= Nausea/Diarrhea Tremor Observation of Outstretched Hands: 2= Slight Tremor Visible Yawning Observation: 1= 1-2x During Session Anxiety or Irritability: 2=Irritable/Anxious Goose Flesh Skin: 0=Smooth Skin COWS Score: 16 BHS Progress Note (SOAP) Subjective: ALERT,IRRITABLE,ANXIOUS,TREMOR,PAIN IN THE BODY AND BACK Objective: 10/10/17 10:42 Vital Signs Temperature 97.7 F 10/10/17 09:11 Pulse Rate 65 10/10/17 09:11 Respiratory Rate 18 10/10/17 09:11 Blood Pressure 107/61 10/10/17 09:11 O2 Sat by Pulse Oximetry (%) Laboratory Last Values WBC 6.2 K/mm3 (4.0-10.0) D 10/09/17 07:00 RBC 5.15 M/mm3 (4.00-5.60) 10/09/17 07:00 Hgb 12.2 GM/dL (11.7-16.9) 10/09/17 07:00 Hct 37.1 % (35.4-49) 10/09/17 07:00 MCV 72.1 fl (80-96) L 10/09/17 07:00 MCH 23.7 pg (25.7-33.7) L 10/09/17 07:00 MCHC 32.9 g/dl (32.0-35.9) 10/09/17 07:00 RDW 14.5 % (11.9-15.9) 10/09/17 07:00 Plt Count 201 K/MM3 (134-434) 10/09/17 07:00 MPV 8.3 fl (7.5-11.1) 10/09/17 07:00 Sodium 143 mmol/L (136-145) 10/09/17 07:00 Potassium 4.2 mmol/L (3.5-5.1) 10/09/17 07:00 Chloride 110 mmol/L (98-107) H 10/09/17 07:00 Carbon Dioxide 28 mmol/L (21-32) 10/09/17 07:00 Anion Gap 5 (8-16) L 10/09/17 07:00 BUN 9 mg/dL (7-18) D 10/09/17 07:00 Creatinine 0.8 mg/dL (0.7-1.3) 10/09/17 07:00 Creat Clearance w eGFR > 60 (>60) 10/09/17 07:00 Random Glucose 89 mg/dL (74-106) 10/09/17 07:00 Calcium 8.5 mg/dL (8.5-10.1) 10/09/17 07:00 Total Bilirubin 0.3 mg/dL (0.2-1.0) 10/09/17 07:00 AST 7 U/L (15-37) L 10/09/17 07:00 ALT 20 U/L (12-78) 10/09/17 07:00 Alkaline Phosphatase 69 U/L (45-117) 10/09/17 07:00 Total Protein 6.0 g/dl (6.4-8.2) L 10/09/17 07:00 Albumin 3.4 g/dl (3.4-5.0) 10/09/17 07:00 Urine Color Ltyellow 10/08/17 11:13 Urine Appearance Clear 10/08/17 11:13 Urine pH 5.0 (5.0-8.0) 10/08/17 11:13 Ur Specific [place] 1.019 (1.001-1.035) 10/08/17 11:13 Urine Protein Negative (NEGATIVE) 10/08/17 11:13 Urine Glucose (UA) Negative (NEGATIVE) 10/08/17 11:13 Urine Ketones Negative (NEGATIVE) 10/08/17 11:13 Urine Blood Negative (NEGATIVE) 10/08/17 11:13 Urine Nitrite Negative (NEGATIVE) 10/08/17 11:13 Urine Bilirubin Negative (<2.0 mg/dL) 10/08/17 11:13 Urine Urobilinogen Negative mg/dL (0.2-1.0) 10/08/17 11:13 Ur Leukocyte Esterase Negative (NEGATIVE) 10/08/17 11:13 RPR Titer Nonreactive (NONREACTIVE) 10/09/17 07:00 Assessment: 10/10/17 10:43 WITHDRAWAL SYMPTOM Plan: CONTINUE DETOX
[2017-10-10] MEDS: PRENATAL VITAMINS W/ FOLIC ACID TABLET (FP) PO SCH (11:17)
[2017-10-10] MEDS: diazePAM 5 MG TABLET PO PRN (11:17)
[2017-10-10] MEDS: NICOTINE 21 MG/24 HOURS TOPICAL PATCH TD SCH (11:18)
--- NOTE | 2017-10-10 13:17 | PN ---
S Progress Note Note: patient did not want to complete treatment,seen by counselor,signed release ama, did not want to wait
--- NOTE | 2017-10-10 13:21 | DS ---
[facility] Detox Discharge Summary Admission Date: 10/08/17 Discharge Date: 10/10/17 - History Present History: Cocaine Dependence, Opioid Dependence Additional Comments: patient did not want to complete treatment,seen by counselor,did not want to wait,signed release ama Pertinent Past History: nicotine dependence depression - Physical Exam Results Vital Signs: Vital Signs Temperature 97.7 F 10/10/17 09:11 Pulse Rate 65 10/10/17 09:11 Respiratory Rate 18 10/10/17 09:11 Blood Pressure 107/61 10/10/17 09:11 O2 Sat by Pulse Oximetry (%) Pertinent Admission Physical Exam Findings: withdrawal signs and symptom Vital Signs Temperature 97.7 F 10/10/17 09:11 Pulse Rate 65 10/10/17 09:11 Respiratory Rate 18 10/10/17 09:11 Blood Pressure 107/61 10/10/17 09:11 O2 Sat by Pulse Oximetry (%) Laboratory Last Values WBC 6.2 K/mm3 (4.0-10.0) D 10/09/17 07:00 RBC 5.15 M/mm3 (4.00-5.60) 10/09/17 07:00 Hgb 12.2 GM/dL (11.7-16.9) 10/09/17 07:00 Hct 37.1 % (35.4-49) 10/09/17 07:00 MCV 72.1 fl (80-96) L 10/09/17 07:00 MCH 23.7 pg (25.7-33.7) L 10/09/17 07:00 MCHC 32.9 g/dl (32.0-35.9) 10/09/17 07:00 RDW 14.5 % (11.9-15.9) 10/09/17 07:00 Plt Count 201 K/MM3 (134-434) 10/09/17 07:00 MPV 8.3 fl (7.5-11.1) 10/09/17 07:00 Sodium 143 mmol/L (136-145) 10/09/17 07:00 Potassium 4.2 mmol/L (3.5-5.1) 10/09/17 07:00 Chloride 110 mmol/L (98-107) H 10/09/17 07:00 Carbon Dioxide 28 mmol/L (21-32) 10/09/17 07:00 Anion Gap 5 (8-16) L 10/09/17 07:00 BUN 9 mg/dL (7-18) D 10/09/17 07:00 Creatinine 0.8 mg/dL (0.7-1.3) 10/09/17 07:00 Creat Clearance w eGFR > 60 (>60) 10/09/17 07:00 Random Glucose 89 mg/dL (74-106) 10/09/17 07:00 Calcium 8.5 mg/dL (8.5-10.1) 10/09/17 07:00 Total Bilirubin 0.3 mg/dL (0.2-1.0) 10/09/17 07:00 AST 7 U/L (15-37) L 10/09/17 07:00 ALT 20 U/L (12-78) 10/09/17 07:00 Alkaline Phosphatase 69 U/L (45-117) 10/09/17 07:00 Total Protein 6.0 g/dl (6.4-8.2) L 10/09/17 07:00 Albumin 3.4 g/dl (3.4-5.0) 10/09/17 07:00 Urine Color Ltyellow 10/08/17 11:13 Urine Appearance Clear 10/08/17 11:13 Urine pH 5.0 (5.0-8.0) 10/08/17 11:13 Ur Specific [place] 1.019 (1.001-1.035) 10/08/17 11:13 Urine Protein Negative (NEGATIVE) 10/08/17 11:13 Urine Glucose (UA) Negative (NEGATIVE) 10/08/17 11:13 Urine Ketones Negative (NEGATIVE) 10/08/17 11:13 Urine Blood Negative (NEGATIVE) 10/08/17 11:13 Urine Nitrite Negative (NEGATIVE) 10/08/17 11:13 Urine Bilirubin Negative (<2.0 mg/dL) 10/08/17 11:13 Urine Urobilinogen Negative mg/dL (0.2-1.0) 10/08/17 11:13 Ur Leukocyte Esterase Negative (NEGATIVE) 10/08/17 11:13 RPR Titer Nonreactive (NONREACTIVE) 10/09/17 07:00 - Medication Discharge Medications: Ambulatory Orders NK [No Known Home Medication] 01/31/18 - Diagnosis (1) Opioid dependence with withdrawal Current Visit: No Status: Acute (2) Cannabis dependence Current Visit: No Status: Acute (3) Nicotine dependence Current Visit: No Status: Acute Qualifiers: Nicotine product type: cigarettes Substance use status: uncomplicated Qualified Code(s): F17.210 - Nicotine dependence, cigarettes, uncomplicated (4) Weight loss Current Visit: No Status: Acute - AMA Did Patient Leave Against Medical Advice: Yes
[2017-10-11] MEDS ORDERED: METHADONE HCL 5 MG TABLET (FOR DETOX USE ONLY) PO ONE (10:00)
[2017-10-12] MEDS ORDERED: METHADONE HCL 10 MG TABLET (FOR DETOX USE ONLY) PO ONE (10:00)
[2017-10-13] MEDS ORDERED: METHADONE HCL 5 MG TABLET (FOR DETOX USE ONLY) PO ONE (06:00)
== END 2017-10-10 13:08 | disposition left against medical advice (07) | DRG 770 ==
LOC: YASAS 09:16 → Y6N 11:04
PROVIDERS: ADMIT Internal Medicine; ATTEND Internal Medicine
PROC: HZ2ZZZZ Detoxification Services for Substance Abuse Treatment (ICD-10-PCS; principal; 2017-10-08)
DX: F11.23 Opioid dependence with withdrawal (principal); F14.20 Cocaine dependence, uncomplicated; F12.20 Cannabis dependence, uncomplicated; F17.210 Nicotine dependence, cigarettes, uncomplicated; F32.9 Major depressive disorder, single episode, unspecified; F19.24 Other psychoactive substance dependence with psychoactive substance-induced mood disorder; R45.89 Other symptoms and signs involving emotional state; R63.4 Abnormal weight loss; Z68.28 Body mass index [BMI] 28.0-28.9, adult
CPT/HCPCS: 36415; 80053; 81003; 85027; 86593; 93005; 93010

== ENCOUNTER 2019-01-03 11:42 | Inpatient (IN) | payer OTHER ==
[2019-01-03 12:08] VITALS: BMI 25.7
--- NOTE | 2019-01-03 13:28 | HP ---
COWS - Scale Resting Pulse: 0= [place] 80 or Below Sweatin=Flushed/Facial Moisture Restless Observation: 1= Difficult to Sit Still Pupil Size: 1= Pupils >than Normal Bone or Joint Aches: 1= Mild Discomfort Runny Nose/ Eye Tearin= Runny Nose/Eyes GI Upset > 30mins: 2= Nausea/Diarrhea Tremor Observation: 0= None Yawning Observation: 2= >3x During Session Anxiety or Irritability: 2=Irritable/Anxious Goose Flesh Skin: 0=Smooth Skin COWS Score: 13 CIWA Score - Admission Criteria [facility] Guidelines: Admission for Medically Managed Detox: Requires at least one of the followin. CIWA greater than 12 2. Seizures within the past 24 hours 3. Delirium tremens within the past 24 hours 4. Hallucinations within the past 24 hours 5. Acute intervention needed for co occurring medical disorder 6. Acute intervention needed for co occurring psychiatric disorder 7. Severe withdrawal that cannot be handled at a lower level of care (continued vomiting, continued diarrhea, abnormal vital signs) requiring intravenous medication and/or fluids 8. Admission ROS [facility] Allergies/Adverse Reactions: Allergies Allergy/AdvReac Type Severity Reaction Status Date / Time No Known Allergies Allergy Verified 01/03/19 12:01 History of Present Illness: Patient is a 38 yo M with no known PMhx, coming in for heroin detox and rehab. Patient denies previous medical history. Last use this morning. 2 bags of heroin. Usually takes 8-10 bags of heroin a day. Has been doing heroin for a year and a half. Denies IV use. Only snorts it. Overdosed 3 times, last being 5 months ago. Denies hx of seizures, blackouts. Last was in detox 6 months ago. Smokes 1PPD since he was 14. Lives in an apartment with family. Exam Limitations: No Limitations - Ebola screening Have you traveled outside of the country in the last 21 days: No Have you had contact with anyone from an Ebola affected area: No - Review of Systems Constitutional: Loss of Appetite, Night Sweats EENT: reports: No Symptoms Reported Respiratory: denies: Cough, Shortness of Breath Cardiac: denies: Chest Pain Musculoskeletal: reports: Back Pain Neuro: denies: Headache Patient History - Patient Medical History Hx Anemia: No Hx Asthma: No Hx Chronic Obstructive Pulmonary Disease (COPD): No Hx Cancer: No Hx Cardiac Disorders: No Hx Congestive Heart Failure: No Hx Hypertension: No Hx Hypercholesterolemia: No Hx Pacemaker: No HX Cerebrovascular Accident: No Hx Seizures: No Hx Dementia: No Hx Diabetes: No Hx Gastrointestinal Disorders: No Hx Liver Disease: No Hx Genitourinary Disorders: No Hx Sexually Transmitted Disorders: No Hx Renal Disease (ESRD): No Hx Thyroid Disease: No Hx Human Immunodeficiency Virus (HIV): No (2018 NEGATIVE) Hx Hepatitis C: No Hx Depression: Yes (Ocassional, not on meds) Hx Suicide Attempt: No Hx Bipolar Disorder: No Hx Schizophrenia: No - Patient Surgical History Past Surgical History: Yes Hx Neurologic Surgery: No Hx Cataract Extraction: No Hx Cardiac Surgery: No Hx Lung Surgery: No Hx Breast Surgery: No Hx Breast Biopsy: No Hx Abdominal Surgery: No Hx Appendectomy: No Hx Cholecystectomy: No Hx Genitourinary Surgery: No Hx Section: No Hx Orthopedic Surgery: No Other Surgical History: RIGHT INGUINAL HERNIA REPAIR OF 6 YEARS Anesthesia Reaction: No - PPD History Date: 06/23/17 - Smoking Cessation Smoking history: Current every day smoker Have you smoked in the past 12 months: Yes Aproximately how many cigarettes per day: 20 Cigars Per Day: 0 Hx Chewing Tobacco Use: No Initiated information on smoking cessation: Yes 'Breaking Loose' booklet given: 01/03/19 - Substances abused Heroin Substance route: Inhalation Frequency: Daily Amount used: 8 bags Age of first use: 36 Date of last use: 01/03/19 Family Disease History - Family Disease History Family Disease History: Heart Disease: Mother (HTN), Other: Father (, liver Ca), Mother Admission Physical Exam BHS - Vital Signs Vital Signs: Vital Signs - 24 hr 01/03/19 01/03/19 12:03 13:03 Temperature 97.1 F L 97.1 F L Pulse Rate 77 77 Respiratory 16 16 Rate Blood Pressure 114/78 114/78 - Physical General Appearance: Yes: Within Normal Limits HEENTM: Yes: Within Normal Limits Respiratory: Yes: Within Normal Limits, Lungs Clear, No Accessory Muscle Use Neck: Yes: Supple Cardiology: Yes: Within Normal Limits, Regular Rate Abdominal: Yes: Normal Bowel Sounds Extremities: Yes: Within Normal Limits Neurological: Yes: Within Normal Limits, Motor Strength 5/5 - Diagnostic (1) Heroin addiction Current Visit: Yes Status: Acute (2) Nicotine dependence Current Visit: No Status: Acute Qualifiers: Nicotine product type: cigarettes Substance use status: uncomplicated Qualified Code(s): F17.210 - Nicotine dependence, cigarettes, uncomplicated (3) Weight loss Current Visit: No Status: Acute Cleared for Admission S - Detox or Rehab [facility] Level of Care: Medically Managed Detox Regimen/Protocol: Methadone Breathalyzer - Breathalyzer Breathalyzer: 0 Urine Drug Screen - Test Device Lot number: [id number] Expiration date: 09/17/19 - Control Is test valid?: Yes - Results Drug screen NEGATIVE: No Urine drug screen results: MOP-Opiates Inpatient Rehab Admission - Rehab Decision to Admit Inpatient rehab admission?: No
[2019-01-03] MEDS ORDERED: MENTHOL/PHENOL 1 EACH UD MM PRN (13:45)
[2019-01-03] MEDS ORDERED: cloNIDine HCL 0.1 MG TABLET PO PRN (13:45)
[2019-01-03] MEDS ORDERED: MAG HYDROX/AL HYDROX/SIMETH 30 ML UNIT-DOSE CUP PO PRN (13:45)
[2019-01-03] MEDS ORDERED: MAGNESIUM HYDROX 2400MG/30ML ORAL SUSPENSION 30 ML CUP PO PRN (13:45)
[2019-01-03] MEDS ORDERED: BISMUTH SUBSALICYLATE 262 MG/15 ML BTL PO PRN (13:45)
[2019-01-03] MEDS ORDERED: hydrOXYzine HCL 25 MG TABLET (FP) PO PRN (13:45)
[2019-01-03] MEDS ORDERED: MAGNESIUM CITRATE 300 ML BOTTLE PO PRN (13:45)
[2019-01-03] MEDS ORDERED: IBUPROFEN 400 MG TABLET (FP) PO PRN (13:45)
[2019-01-03] MEDS ORDERED: ACETAMINOPHEN 325 MG TABLET (FP) PO PRN ×2 (13:45)
--- NOTE | 2019-01-03 13:50 | PN ---
Teaching Attending Note Name of Resident: Brooke Tolbert ATTENDING PHYSICIAN STATEMENT I saw and evaluated the patient. I reviewed the resident's note and discussed the case with the resident. I agree with the resident's findings and plan as documented. SUBJECTIVE: 38 years old male with heroin dependence,seeking detox,had previous admissions before OBJECTIVE: withdrawal signs and symptom Vital Signs Temperature 97.1 F L 01/03/19 13:03 Pulse Rate 77 01/03/19 13:03 Respiratory Rate 16 01/03/19 13:03 Blood Pressure 114/78 01/03/19 13:03 O2 Sat by Pulse Oximetry (%) ASSESSMENT AND PLAN: patient needed inpatient detox methadone regimen,medically manage,plan for rehab after detox
[2019-01-03] MEDS ORDERED: METHADONE HCL 10 MG TABLET (FOR DETOX USE ONLY) PO ONE (14:45)
[2019-01-03 17:16] LABS: ALBUMIN 4.1 g/dl (3.4-5.0); BILIRUBIN,TOTAL 0.2 mg/dL (0.2-1); BLOOD UREA NITROGEN 15.6 mg/dL (7-18); CALCIUM 9.5 mg/dL (8.5-10.1); CREATININE 0.9 mg/dL (0.55-1.3); POTASSIUM 4.4 mmol/L (3.5-5.1); TOT PROT 7.2 g/dl (6.4-8.2)
[2019-01-03 17:25] LABS: HEMATOCRIT 36.2 % (35.4-49); HEMOGLOBIN 11.6 GM/dL (11.7-16.9); MCH 23.1 pg (25.7-33.7); MCHC 32.1 g/dl (32.0-35.9); MEAN CELL VOLUME 71.8 fl (80-96); MEAN PLT VOLUME 8.3 fl (7.5-11.1); PLATELET COUNT 260 K/MM3 (134-434); RBC 5.05 M/mm3 (4.00-5.60); RDW 15.4 % (11.9-15.9); WHITE BLOOD COUNT 7.7 K/mm3 (4.0-10.0)
[2019-01-03] MEDS: THIAMINE HCL 100 MG TABLET (FP) PO SCH (22:58)
--- NOTE | 2019-01-04 09:06 | PN ---
S CIWA - CIWA Score Nausea/Vomitin-Mild Nausea/No Vomiting Muscle Tremors: 2 Anxiety: 1-Mildly Anxious Agitation: 0-Normal Activity Paroxysmal Sweats: No Perspiration Orientation: 0-Oriented Tacttile Disturbances: 0-None Auditory Disturbances: 0-None Visual Disturbances: 0-None Headache: 1-Very Mild CIWA-Ar Total Score: 5 BHS COWS - Scale Resting Pulse: 0= [place] 80 or Below Sweatin= Chills/Flushing Restless Observation: 1= Difficult to Sit Still Pupil Size: 0= Normal to Room Light Bone or Joint Aches: 1= Mild Discomfort Runny Nose/ Eye Tearin= Nasal Congestion GI Upset > 30mins: 2= Nausea/Diarrhea Tremor Observation of Outstretched Hands: 1= Tremor [place], Not Seen Yawning Observation: 0= None Anxiety or Irritability: 1=Feels Anxious/Irritable Goose Flesh Skin: 0=Smooth Skin COWS Score: 8 BHS Progress Note (SOAP) Subjective: Patient feels better but still has some withdrawal symptoms. Objective: 01/04/19 09:06 General Appearance: Yes: Within Normal Limits HEENTM: Yes: Within Normal Limits Respiratory: Yes: Within Normal Limits, Lungs Clear, No Accessory Muscle Use Neck: Yes: Supple Cardiology: Yes: Within Normal Limits, Regular Rate Abdominal: Yes: Normal Bowel Sounds Extremities: Yes: Within Normal Limits Neurological: Yes: Within Normal Limits, Motor Strength Abnormal Lab Results 01/03/19 01/03/19 14:30 14:30 Hgb 11.6 L MCV 71.8 L MCH 23.1 L Anion Gap 6 L AST 14 L Laboratory 01/03/19 01/03/19 01/03/19 14:30 14:30 14:30 WBC 7.7 K/mm3 K/mm3 (4.0-10.0) RBC 5.05 M/mm3 M/mm3 (4.00-5.60) Hgb 11.6 GM/dL L GM/dL (11.7-16.9) Hct 36.2 % % (35.4-49) MCV 71.8 fl L fl (80-96) MCH 23.1 pg L pg (25.7-33.7) MCHC 32.1 g/dl g/dl (32.0-35.9) RDW 15.4 % % (11.9-15.9) Plt Count 260 K/MM3 D K/MM3 (134-434) MPV 8.3 fl fl (7.5-11.1) Sodium 140 mmol/L mmol/L (136-145) Potassium 4.4 mmol/L mmol/L (3.5-5.1) Chloride 106 mmol/L mmol/L (98-107) Carbon Dioxide 29 mmol/L mmol/L (21-32) Anion Gap 6 MMOL/L L MMOL/L (8-16) BUN 15.6 mg/dL mg/dL (7-18) Creatinine 0.9 mg/dL mg/dL (0.55-1.3) Est GFR (CKD-EPI)AfAm 126.02 Est GFR (CKD-EPI)NonAf 108.73 Random Glucose 96 mg/dL mg/dL (74-106) Calcium 9.5 mg/dL mg/dL (8.5-10.1) Total Bilirubin 0.2 mg/dL mg/dL (0.2-1) AST 14 U/L L U/L (15-37) ALT 39 U/L U/L (13-61) Alkaline Phosphatase 89 U/L U/L (45-117) Total Protein 7.2 g/dl g/dl (6.4-8.2) Albumin 4.1 g/dl g/dl (3.4-5.0) RPR Titer Nonreactive (NONREACTIVE) Assessment: 01/04/19 09:06 Assessment: 1. Low anion gap noted 2. Microcytic Anemia noted 01/04/19 09:07 Plan: 1. Anion gap consistent with nausea and diarrhea and he also has some vomitting. 2. Anemia: Consistent with poor nutrition and probably low iron intake. No need for supplementation as indices are mild. Encourage iron intake by diet for now. Dr. Howard
[2019-01-04] MEDS ORDERED: METHADONE HCL 10 MG TABLET (FOR DETOX USE ONLY) ONE (09:31)
[2019-01-04] MEDS ORDERED: METHADONE HCL 5 MG TABLET (FOR DETOX USE ONLY) ONE (09:32)
[2019-01-04] MEDS ORDERED: METHADONE (DETOX) 20 MG, METHADONE (DETOX) 5 MG PO ONE (10:00)
[2019-01-04] MEDS: PRENATAL VITAMINS W/ FOLIC ACID TABLET (FP) PO SCH (11:20)
[2019-01-04] MEDS: NICOTINE POLACRILEX 2 MG GUM BUC PRN (11:20)
[2019-01-04] MEDS: THIAMINE HCL 100 MG TABLET (FP) PO SCH (22:45)
[2019-01-05] MEDS ORDERED: METHADONE HCL 10 MG TABLET (FOR DETOX USE ONLY) PO ONE (10:00)
--- NOTE | 2019-01-05 10:43 | PN ---
[facility] CIWA - CIWA Score Nausea/Vomitin-No Nausea/No Vomiting Muscle Tremors: None Anxiety: 3 Agitation: 0-Normal Activity Paroxysmal Sweats: 3 Orientation: 0-Oriented Tacttile Disturbances: 0-None Auditory Disturbances: 0-None Visual Disturbances: 0-None Headache: 0-None Present CIWA-Ar Total Score: 6 S COWS - Scale Resting Pulse: 0= [place] 80 or Below Sweatin= Beads of Sweat on Face Restless Observation: 1= Difficult to Sit Still Pupil Size: 0= Normal to Room Light Bone or Joint Aches: 0= None Runny Nose/ Eye Tearin= None GI Upset > 30mins: 0= None Tremor Observation of Outstretched Hands: 0= None Yawning Observation: 1= 1-2x During Session Anxiety or Irritability: 2=Irritable/Anxious Goose Flesh Skin: 0=Smooth Skin COWS Score: 7 [facility] Progress Note (SOAP) Subjective: c/o sweats, anxiety, and irritability. Objective: 01/05/19 10:42 Vital Signs 01/05/19 01/05/19 01/05/19 03:30 06:30 06:39 Temperature 97.7 F Pulse Rate 66 Respiratory 18 18 18 Rate Blood Pressure 100/60 01/05/19 09:28 Temperature 97.0 F L Pulse Rate 62 Respiratory 18 Rate Blood Pressure 110/75 Lab Results WBC 7.7 K/mm3 (4.0-10.0) 01/03/19 14:30 RBC 5.05 M/mm3 (4.00-5.60) 01/03/19 14:30 Hgb 11.6 GM/dL (11.7-16.9) L 01/03/19 14:30 Hct 36.2 % (35.4-49) 01/03/19 14:30 MCV 71.8 fl (80-96) L 01/03/19 14:30 MCHC 32.1 g/dl (32.0-35.9) 01/03/19 14:30 RDW 15.4 % (11.9-15.9) 01/03/19 14:30 Plt Count 260 K/MM3 (134-434) D 01/03/19 14:30 Sodium 140 mmol/L (136-145) 01/03/19 14:30 Potassium 4.4 mmol/L (3.5-5.1) 01/03/19 14:30 Chloride 106 mmol/L (98-107) 01/03/19 14:30 Carbon Dioxide 29 mmol/L (21-32) 01/03/19 14:30 Anion Gap 6 MMOL/L (8-16) L 01/03/19 14:30 BUN 15.6 mg/dL (7-18) 01/03/19 14:30 Creatinine 0.9 mg/dL (0.55-1.3) 01/03/19 14:30 Random Glucose 96 mg/dL (74-106) 01/03/19 14:30 Calcium 9.5 mg/dL (8.5-10.1) 01/03/19 14:30 Labs noted. Assessment: 01/05/19 10:42 AOX3, in no acute distress. Full ROM, ambulating in the unit. Withdrawal symptoms. Plan: continue detox.
[2019-01-05] MEDS: PRENATAL VITAMINS W/ FOLIC ACID TABLET (FP) PO SCH (10:48)
[2019-01-05] MEDS: NICOTINE POLACRILEX 2 MG GUM BUC PRN ×2 (10:50→22:19)
[2019-01-05] MEDS: THIAMINE HCL 100 MG TABLET (FP) PO SCH (21:41)
[2019-01-05] MEDS: MELATONIN 5 MG TABLETS PO PRN (22:18)
[2019-01-05] MEDS: METHOCARBAMOL 500 MG TABLET PO PRN (22:18)
[2019-01-06] MEDS ORDERED: METHADONE HCL 5 MG TABLET (FOR DETOX USE ONLY) ONE (09:25)
[2019-01-06] MEDS ORDERED: METHADONE HCL 10 MG TABLET (FOR DETOX USE ONLY) ONE (09:25)
[2019-01-06] MEDS ORDERED: METHADONE (DETOX) 10 MG, METHADONE (DETOX) 5 MG PO ONE (10:00)
[2019-01-06] MEDS: PRENATAL VITAMINS W/ FOLIC ACID TABLET (FP) PO SCH (10:58)
[2019-01-06] MEDS: NICOTINE POLACRILEX 2 MG GUM BUC PRN ×2 (11:00→22:14)
--- NOTE | 2019-01-06 12:20 | PN ---
S CIWA - CIWA Score Nausea/Vomitin-No Nausea/No Vomiting Muscle Tremors: 2 Anxiety: 2 Agitation: 1-Slight > Activity Paroxysmal Sweats: 2 Orientation: 0-Oriented Tacttile Disturbances: 0-None Auditory Disturbances: 0-None Visual Disturbances: 0-None Headache: 0-None Present CIWA-Ar Total Score: 7 BHS COWS - Scale Resting Pulse: 0= [place] 80 or Below Sweatin= Chills/Flushing Restless Observation: 0= Sits Still Pupil Size: 0= Normal to Room Light Bone or Joint Aches: 1= Mild Discomfort Runny Nose/ Eye Tearin= Nasal Congestion GI Upset > 30mins: 0= None Tremor Observation of Outstretched Hands: 1= Tremor [place], Not Seen Yawning Observation: 1= 1-2x During Session Anxiety or Irritability: 1=Feels Anxious/Irritable Goose Flesh Skin: 0=Smooth Skin COWS Score: 6 BHS Progress Note (SOAP) Subjective: sweats irritable feeling better Objective: 01/06/19 12:20 Vital Signs Temperature 97.9 F 01/06/19 09:40 Pulse Rate 59 L 01/06/19 09:40 Respiratory Rate 18 01/06/19 09:40 Blood Pressure 103/68 01/06/19 09:40 O2 Sat by Pulse Oximetry (%) Laboratory Tests 01/03/19 01/03/19 01/03/19 14:30 14:30 14:30 WBC 7.7 RBC 5.05 Hgb 11.6 L Hct 36.2 MCV 71.8 L MCH 23.1 L MCHC 32.1 RDW 15.4 Plt Count 260 D MPV 8.3 Sodium 140 Potassium 4.4 Chloride 106 Carbon Dioxide 29 Anion Gap 6 L BUN 15.6 Creatinine 0.9 Est GFR (CKD-EPI)AfAm 126.02 Est GFR (CKD-EPI)NonAf 108.73 Random Glucose 96 Calcium 9.5 Total Bilirubin 0.2 AST 14 L ALT 39 Alkaline Phosphatase 89 Total Protein 7.2 Albumin 4.1 RPR Titer Nonreactive labs noted aaox3 ambulating no acute distress Assessment: 01/06/19 12:20 withdrawal sx Plan: continue detox
[2019-01-06] MEDS: MELATONIN 5 MG TABLETS PO PRN (22:13)
[2019-01-06] MEDS: THIAMINE HCL 100 MG TABLET (FP) PO SCH (22:13)
[2019-01-06] MEDS: METHOCARBAMOL 500 MG TABLET PO PRN (22:16)
[2019-01-07 07:22] VITALS: PULSE 65; TEMP 97.9
[2019-01-07 09:30] VITALS: BP 107/59
[2019-01-07] MEDS ORDERED: METHADONE HCL 10 MG TABLET (FOR DETOX USE ONLY) PO ONE (10:00)
[2019-01-07] MEDS: PRENATAL VITAMINS W/ FOLIC ACID TABLET (FP) PO SCH (10:13)
--- NOTE | 2019-01-07 10:30 | DS ---
[facility] Detox Discharge Summary Admission Date: 01/03/19 Discharge Date: 01/07/19 - History Present History: Cannabis Dependence, Cocaine Dependence, Opioid Dependence - Physical Exam Results Vital Signs: Vital Signs Temperature 97.9 F 01/07/19 09:30 Pulse Rate 65 01/07/19 09:30 Respiratory Rate 18 01/07/19 09:30 Blood Pressure 107/59 L 01/07/19 09:30 O2 Sat by Pulse Oximetry (%) Pertinent Admission Physical Exam Findings: pt arrived in withdrawals Laboratory Tests 01/03/19 01/03/19 01/03/19 14:30 14:30 14:30 WBC 7.7 RBC 5.05 Hgb 11.6 L Hct 36.2 MCV 71.8 L MCH 23.1 L MCHC 32.1 RDW 15.4 Plt Count 260 D MPV 8.3 Sodium 140 Potassium 4.4 Chloride 106 Carbon Dioxide 29 Anion Gap 6 L BUN 15.6 Creatinine 0.9 Est GFR (CKD-EPI)AfAm 126.02 Est GFR (CKD-EPI)NonAf 108.73 Random Glucose 96 Calcium 9.5 Total Bilirubin 0.2 AST 14 L ALT 39 Alkaline Phosphatase 89 Total Protein 7.2 Albumin 4.1 RPR Titer Nonreactive today pt is aaox3 ambulating no acute distress no s/s of withdrawals - Treatment Hospital Course: Detox Protocol Followed, Detoxed Safely, Responded well, Discharged Condition Good, Rehab Referral Accepted Patient has Accepted a Rehab Referral to: pt declined rehab; referral provided - Medication Discharge Medications: Ambulatory Orders NK [No Known Home Medication] 06/21/17 - Diagnosis (1) Cannabis dependence Current Visit: Yes Status: Chronic (2) Cocaine dependence, uncomplicated Current Visit: Yes Status: Chronic (3) Depression Current Visit: No Status: Acute Qualifiers: Depression Type: unspecified Qualified Code(s): F32.9 - Major depressive disorder, single episode, unspecified (4) Drug-induced mood disorder Current Visit: No Status: Acute (5) Insomnia Current Visit: No Status: Acute Qualifiers: Insomnia type: unspecified Qualified Code(s): G47.00 - Insomnia, unspecified (6) Nicotine dependence, uncomplicated Current Visit: Yes Status: Chronic Qualifiers: Nicotine product type: cigarettes Qualified Code(s): F17.210 - Nicotine dependence, cigarettes, uncomplicated (7) Opioid dependence with withdrawal Current Visit: Yes Status: Chronic - AMA Did Patient Leave Against Medical Advice: No
[2019-01-08] MEDS ORDERED: METHADONE HCL 5 MG TABLET (FOR DETOX USE ONLY) PO ONE (06:00)
== END 2019-01-07 10:20 | disposition home or self-care (01) | DRG 773 ==
LOC: YASAS 11:42 → Y6N 14:25
PROVIDERS: ADMIT Surgery; ATTEND Surgery
PROC: HZ2ZZZZ Detoxification Services for Substance Abuse Treatment (ICD-10-PCS; principal; 2019-01-03)
DX: F11.23 Opioid dependence with withdrawal (principal); F14.20 Cocaine dependence, uncomplicated; F12.20 Cannabis dependence, uncomplicated; F17.210 Nicotine dependence, cigarettes, uncomplicated; F19.24 Other psychoactive substance dependence with psychoactive substance-induced mood disorder; F32.9 Major depressive disorder, single episode, unspecified; G47.00 Insomnia, unspecified; R63.4 Abnormal weight loss
CPT/HCPCS: 36415; 80053; 85027; 86593

== ENCOUNTER 2020-01-03 15:56 | Inpatient (IN) | payer OTHER ==
--- NOTE | 2020-01-03 20:06 | BHS.RME ---
Substance Use & Tx History - Substance Use History Heroin Substance amount: 10 bags Frequency of use: Daily Substance route: Inhalation (ex: sniffing or snorting) Physical/Psych/Mental Status - Behavior Eye Contact: Normal - Cooperativeness Cooperativeness: Cooperative - Thinking Thought Processes: Logical Thought content: Future oriented - Physical Health Problems Is patient presently having any pain?: Yes Does patient presently have any injuries (include location): No Does patient currently have a fever: No Is patient : No COWS - Scale Resting Pulse: 0= [place] 80 or Below Sweatin=Flushed/Facial Moisture Restless Observation: 0= Sits Still Pupil Size: 0= Normal to Room Light Bone or Joint Aches: 2= Severe Diffuse Aches Runny Nose/ Eye Tearin= Runny Nose/Eyes GI Upset > 30mins: 2= Nausea/Diarrhea (nausea, no diarrhea) Tremor Observation: 2= Slight Tremor Visible Yawning Observation: 1= 1-2x During Session Anxiety or Irritability: 2=Irritable/Anxious Goose Flesh Skin: 0=Smooth Skin COWS Score: 13 Treatment Recommendation - Level of Care Level of Care: Opioid Treatment Program (OTP)
[2020-01-03 20:21] VITALS: BMI 29.4
--- NOTE | 2020-01-03 20:46 | HP ---
COWS - Scale Resting Pulse: 0= [place] 80 or Below Sweatin=Flushed/Facial Moisture Restless Observation: 0= Sits Still Pupil Size: 0= Normal to Room Light Bone or Joint Aches: 2= Severe Diffuse Aches Runny Nose/ Eye Tearin= Runny Nose/Eyes GI Upset > 30mins: 2= Nausea/Diarrhea (nausea, no diarrhea) Tremor Observation: 2= Slight Tremor Visible Yawning Observation: 1= 1-2x During Session Anxiety or Irritability: 2=Irritable/Anxious Goose Flesh Skin: 0=Smooth Skin COWS Score: 13 CIWA Score - Admission Criteria [facility]ASAS Guidelines: Admission for Medically Managed Detox: Requires at least one of the followin. CIWA greater than 12 2. Seizures within the past 24 hours 3. Delirium tremens within the past 24 hours 4. Hallucinations within the past 24 hours 5. Acute intervention needed for co occurring medical disorder 6. Acute intervention needed for co occurring psychiatric disorder 7. Severe withdrawal that cannot be handled at a lower level of care (continued vomiting, continued diarrhea, abnormal vital signs) requiring intravenous medication and/or fluids 8. Admitting History and Physical - Smoking History Smoking history: Current every day smoker Have you smoked in the past 12 months: Yes Aproximately how many cigarettes per day: 20 - Alcohol/Substance Use Hx Alcohol Use: Yes ("a little bit") Admission [facility] Chief Complaint: Seeking admission to detox from Heroin Allergies/Adverse Reactions: Allergies Allergy/AdvReac Type Severity Reaction Status Date / Time No Known Allergies Allergy Verified 01/03/20 20:30 History of Present Illness: 39 years old male with 2 years of heroin dependence is seeking admission to detox. His last admission was for the period 01/03/2019 - 01/07/2019 and he reports that he relapsed 4 months later. He denies medical history, psych. history and suicidal ideation at this time. He reports that he uses 10 bags daily. He is unemployed, lives with his mother and denies any legal issues. He reports that he overdosed 18 months ago. Exam Limitations: No Limitations - Ebola screening Have you traveled outside of the country in the last 21 days: No Have you had contact with anyone from an Ebola affected area: No Have you been sick,other than usual withdrawal symptoms: No Do you have a fever: No - Review of Systems Constitutional: Chills, Malaise, Night Sweats, Changes in sleep EENT: reports: No Symptoms Reported Respiratory: reports: No Symptoms reported Cardiac: reports: No Symptoms Reported GI: reports: Constipated, Nausea, Poor Appetite, Poor Fluid Intake, Abdominal cramping : reports: No Symptoms Reported Musculoskeletal: reports: Back Pain, Other (bilateral leg pain) Integumentary: reports: Dryness, Flushing Neuro: reports: Headache, Tremors Endocrine: reports: No Symptoms Reported Hematology: reports: No Symptoms Reported Psychiatric: reports: Mood/Affect Appropiate, Orientated x3 Other Systems: Reviewed and Negative Patient History - Patient Medical History Hx Anemia: No Hx Asthma: No Hx Chronic Obstructive Pulmonary Disease (COPD): No Hx Cancer: No Hx Cardiac Disorders: No Hx Congestive Heart Failure: No Hx Hypertension: No Hx Hypercholesterolemia: No Hx Pacemaker: No HX Cerebrovascular Accident: No Hx Seizures: No Hx Dementia: No Hx Diabetes: No Hx Gastrointestinal Disorders: No Hx Liver Disease: No Hx Genitourinary Disorders: No Hx Sexually Transmitted Disorders: No Hx Renal Disease (ESRD): No Hx Thyroid Disease: No Hx Human Immunodeficiency Virus (HIV): No ( NEGATIVE 2020) Hx Hepatitis C: No Hx Depression: No Hx Suicide Attempt: No (Denies suicidal ideation at this time) Hx Bipolar Disorder: No Hx Schizophrenia: No - Patient Surgical History Past Surgical History: Yes Hx Neurologic Surgery: No Hx Cataract Extraction: No Hx Cardiac Surgery: No Hx Lung Surgery: No Hx Abdominal Surgery: No Hx Appendectomy: Yes (AT AGE 8 YEARS) Hx Cholecystectomy: No Hx Genitourinary Surgery: No Hx Section: No Hx Orthopedic Surgery: No Anesthesia Reaction: No - PPD History Previous Implant?: Yes Documented Results: Negative w/proof Implanted On Prior [facility] Admission?: Yes Date: 06/23/17 PPD to be Administered?: Yes - Reproductive History Patient is a Female of Child Bearing Age (11 -55 yrs old): No (Male) - Smoking Cessation Smoking history: Current every day smoker Have you smoked in the past 12 months: Yes Aproximately how many cigarettes per day: 20 Hx Chewing Tobacco Use: No Initiated information on smoking cessation: Yes 'Breaking Loose' booklet given: 01/03/20 - Substance & Tx. History Hx Alcohol Use: No Hx Substance Use: Yes Substance Use Type: Cocaine, Heroin, Opiates Hx Substance Use Treatment: Yes ([facility]) - Substances abused Heroin Substance route: Inhalation Frequency: Daily Amount used: 10 BAGS Age of first use: 37 Date of last use: 01/03/20 Admission Physical Exam [facility] - Vital Signs Vital Signs: Vital Signs - 24 hr 01/03/20 20:19 Temperature 97.7 F Pulse Rate 73 Respiratory 18 Rate Blood Pressure 118/75 - Physical General Appearance: Yes: Moderate Distress, Tremorous HEENTM: Yes: Within Normal Limits Respiratory: Yes: Lungs Clear, Normal Breath Sounds, No Respiratory Distress Neck: Yes: Within Normal Limits Breast: Yes: Breast Exam Deferred Cardiology: Yes: Regular Rhythm, Regular Rate Abdominal: Yes: Normal Bowel Sounds, Protuberent Genitourinary: Yes: Within Normal Limits Back: Yes: Normal Inspection Musculoskeletal: Yes: Back pain, Other (bilateral leg pain) Extremities: Yes: Tremors Neurological: Yes: Within Normal Limits, Alert, Normal Mood/Affect Integumentary: Yes: Within Normal Limits Lymphatic: Yes: Within Normal Limits - Diagnostic (1) Cocaine dependence, uncomplicated Current Visit: Yes Status: Chronic (2) Nicotine dependence, uncomplicated Current Visit: Yes Status: Chronic Qualifiers: Nicotine product type: cigarettes Qualified Code(s): F17.210 - Nicotine dependence, cigarettes, uncomplicated (3) Opioid dependence with withdrawal Current Visit: Yes Status: Acute Cleared for Admission [facility] - Detox or Rehab [facility] Level of Care: Medically Managed Detox Regimen/Protocol: Methadone Claeared for Rehab Admission: No Breathalyzer - Breathalyzer Breathalyzer: 0 Urine Drug Screen - Test Device Lot number: [id number] Expiration date: 08/27/21 - Control Is test valid?: Yes - Results Drug screen NEGATIVE: No Urine drug screen results: STACIE-Cocaine, FEN-Fentanyl, MOP-Opiates, MTD- Methadone, BZO-Benzodiazepines Inpatient Rehab Admission - Rehab Decision to Admit Inpatient rehab admission?: No
[2020-01-03] MEDS ORDERED: BISMUTH SUBSALICYLATE 524 MG/30 ML UD PO PRN (21:05)
[2020-01-03] MEDS ORDERED: NICOTINE POLACRILEX 2 MG GUM BUC PRN (21:05)
[2020-01-03] MEDS ORDERED: ACETAMINOPHEN 325 MG TABLET (FP) PO PRN ×2 (21:05)
[2020-01-03] MEDS ORDERED: MAGNESIUM HYDROX 2400MG/30ML ORAL SUSPENSION 30 ML CUP PO PRN (21:05)
[2020-01-03] MEDS ORDERED: METHOCARBAMOL 500 MG TABLET PO PRN (21:05)
[2020-01-03] MEDS ORDERED: ONDANSETRON *ODT* 4 MG TABLET SL ONE (21:05)
[2020-01-03] MEDS ORDERED: MAG HYDROX/AL HYDROX/SIMETH 30 ML UNIT-DOSE CUP PO PRN (21:05)
[2020-01-03] MEDS ORDERED: IBUPROFEN 400 MG TABLET (FP) PO PRN (21:05)
[2020-01-03] MEDS ORDERED: MENTHOL/PHENOL 1 EACH UD MM PRN (21:05)
[2020-01-03] MEDS ORDERED: cloNIDine HCL 0.1 MG TABLET PO PRN (21:05)
[2020-01-03] MEDS ORDERED: hydrOXYzine PAMOATE 25 MG CAPSULE (FP) PO PRN (21:05)
[2020-01-03] MEDS ORDERED: MAGNESIUM CITRATE 300 ML BOTTLE PO PRN (21:05)
[2020-01-03] MEDS ORDERED: METHADONE HCL 10 MG TABLET (FOR DETOX USE ONLY) PO ONE (21:05)
[2020-01-03] MEDS: THIAMINE HCL 100 MG TABLET (FP) PO SCH (22:28)
[2020-01-03] MEDS: MELATONIN 5 MG TABLETS PO SCH (22:31)
[2020-01-04] MEDS ORDERED: METHADONE HCL 5 MG TABLET (FOR DETOX USE ONLY) ONE (09:29)
[2020-01-04] MEDS ORDERED: METHADONE HCL 10 MG TABLET (FOR DETOX USE ONLY) ONE (09:29)
[2020-01-04] MEDS ORDERED: METHADONE (DETOX) 20 MG, METHADONE (DETOX) 5 MG PO ONE (10:00)
[2020-01-04] MEDS: NICOTINE 14 MG/24 HOURS TOPICAL PATCH TD SCH (11:18)
[2020-01-04] MEDS: PRENATAL VITAMINS W/ FOLIC ACID TABLET (FP) PO SCH (11:18)
--- NOTE | 2020-01-04 11:37 | PN ---
BHS COWS - Scale Resting Pulse: 0= [place] 80 or Below Sweatin= Beads of Sweat on Face Restless Observation: 1= Difficult to Sit Still Pupil Size: 0= Normal to Room Light Bone or Joint Aches: 2= Severe Diffuse Aches Runny Nose/ Eye Tearin= None GI Upset > 30mins: 0= None Tremor Observation of Outstretched Hands: 0= None Yawning Observation: 1= 1-2x During Session Anxiety or Irritability: 2=Irritable/Anxious Goose Flesh Skin: 0=Smooth Skin COWS Score: 9 BHS Progress Note (SOAP) Subjective: c/o sweats, anxiety, muscle aches, and irritability. Objective: 01/04/20 11:36 Vital Signs 01/04/20 08:48 Temperature 97.1 F L Pulse Rate 62 Respiratory 18 Rate Blood Pressure 117/79 Labs pending. Assessment: 01/04/20 11:36 AOX3 and in no acute respiratory distress. Full ROM, ambulating in the unit. Withdrawal symptoms. Plan: continue detox.
[2020-01-04 11:56] LABS: HEMATOCRIT 38.2 % (35.4-49); HEMOGLOBIN 12.1 GM/dL (11.7-16.9); MCH 22.9 pg (25.7-33.7); MCHC 31.7 g/dl (32.0-35.9); MEAN CELL VOLUME 72.3 fl (80-96); MEAN PLT VOLUME 9.1 fl (7.5-11.1); PLATELET COUNT 204 K/MM3 (134-434); RBC 5.28 M/mm3 (4.00-5.60); RDW 14.7 % (11.9-15.9); WHITE BLOOD COUNT 7.2 K/mm3 (4.0-10.0)
[2020-01-04 12:11] LABS: ALBUMIN 3.5 g/dl (3.4-5.0); BILIRUBIN,TOTAL 0.8 mg/dL (0.2-1); BLOOD UREA NITROGEN 10.1 mg/dL (7-18); CALCIUM 8.9 mg/dL (8.5-10.1); CREATININE 0.9 mg/dL (0.55-1.3); POTASSIUM 4.5 mmol/L (3.5-5.1); TOT PROT 6.3 g/dl (6.4-8.2)
[2020-01-04] MEDS ORDERED: MASKS NR ONE (17:48)
[2020-01-04] MEDS: MELATONIN 5 MG TABLETS PO SCH (23:20)
[2020-01-04] MEDS: THIAMINE HCL 100 MG TABLET (FP) PO SCH (23:20)
[2020-01-05] MEDS ORDERED: METHADONE HCL 10 MG TABLET (FOR DETOX USE ONLY) PO ONE (10:00)
[2020-01-05] MEDS: NICOTINE 14 MG/24 HOURS TOPICAL PATCH TD SCH (11:32)
[2020-01-05] MEDS: PRENATAL VITAMINS W/ FOLIC ACID TABLET (FP) PO SCH (11:33)
--- NOTE | 2020-01-05 14:43 | PN ---
BHS COWS - Scale Resting Pulse: 0= [place] 80 or Below Sweatin= Chills/Flushing Restless Observation: 0= Sits Still Pupil Size: 1= Pupils >than Normal Bone or Joint Aches: 1= Mild Discomfort Runny Nose/ Eye Tearin= None GI Upset > 30mins: 1= Stomach Cramp Tremor Observation of Outstretched Hands: 2= Slight Tremor Visible Yawning Observation: 0= None Anxiety or Irritability: 2=Irritable/Anxious Goose Flesh Skin: 0=Smooth Skin COWS Score: 8 BHS Progress Note (SOAP) Subjective: 39 years old male admitted on 01/03/20 for opiate withdrawal sx management treating with methadone detox regiment trouble sleeping at night "was" restlessness feels tired today prefers to resting in bed today limited conversation with staff Objective: 01/05/20 14:42 Vital Signs - 24 hr 01/04/20 01/04/20 01/05/20 17:29 21:20 07:21 Temperature 97.1 F L 97.3 F L 97.7 F Pulse Rate 74 62 62 Respiratory 18 18 18 Rate Blood Pressure 120/82 115/79 115/68 O2 Sat by Pulse 100 97 Oximetry (%) 01/05/20 01/05/20 11:32 12:58 Temperature 98.8 F 97.1 F L Pulse Rate 71 68 Respiratory 18 18 Rate Blood Pressure 113/82 118/73 O2 Sat by Pulse 99 Oximetry (%) Laboratory Tests 01/03/20 01/04/20 01/04/20 21:30 07:50 07:50 WBC 7.2 RBC 5.28 Hgb 12.1 Hct 38.2 MCV 72.3 L MCH 22.9 L MCHC 31.7 L RDW 14.7 Plt Count 204 D MPV 9.1 Sodium Potassium Chloride Carbon Dioxide Anion Gap BUN Creatinine Est GFR (CKD-EPI)AfAm Est GFR (CKD-EPI)NonAf Random Glucose Calcium Total Bilirubin AST ALT Alkaline Phosphatase Total Protein Albumin Syphilis Serology Non-reactive COVID-19 ([facility]) Not detected 01/04/20 07:50 WBC RBC Hgb Hct MCV MCH MCHC RDW Plt Count MPV Sodium 142 Potassium 4.5 Chloride 109 H Carbon Dioxide 27 Anion Gap 6 L BUN 10.1 Creatinine 0.9 Est GFR (CKD-EPI)AfAm 125.13 Est GFR (CKD-EPI)NonAf 107.97 Random Glucose 88 Calcium 8.9 Total Bilirubin 0.8 AST 12 L ALT 25 Alkaline Phosphatase 76 Total Protein 6.3 L Albumin 3.5 Syphilis Serology COVID-19 ([facility]) lab noted Assessment: 01/05/20 14:42 opiate withdrawal Plan: methadone regiment
--- NOTE | 2020-01-05 18:55 | EKG ---
Test Reason : Blood Pressure : / mmHG Vent. Rate : 063 BPM Atrial Rate : 063 BPM P-R Int : 182 ms QRS Dur : 120 ms QT Int : 412 ms P-R-T Axes : 054 067 058 degrees QTc Int : 421 ms NORMAL SINUS RHYTHM NON-SPECIFIC INTRA-VENTRICULAR CONDUCTION DELAY BORDERLINE ECG WHEN COMPARED WITH ECG OF 08-OCT-2017 11:43, NO SIGNIFICANT CHANGE WAS FOUND Confirmed by MD SMITA, ROBBIN ([id number]) on 01/05/2020 6:55:22 PM Referred By: Confirmed By:ROBBIN ORDOÑEZ MD
[2020-01-05] MEDS: THIAMINE HCL 100 MG TABLET (FP) PO SCH (22:32)
[2020-01-05] MEDS: MELATONIN 5 MG TABLETS PO SCH (22:32)
--- NOTE | 2020-01-06 09:19 | EKG ---
Test Reason : Blood Pressure : / mmHG Vent. Rate : 053 BPM Atrial Rate : 053 BPM P-R Int : 200 ms QRS Dur : 118 ms QT Int : 436 ms P-R-T Axes : 059 066 061 degrees QTc Int : 409 ms SINUS BRADYCARDIA NON-SPECIFIC INTRA-VENTRICULAR CONDUCTION DELAY BORDERLINE ECG WHEN COMPARED WITH ECG OF 03-JAN-2020 20:26, NO SIGNIFICANT CHANGE WAS FOUND Confirmed by DIONE DOMINGUEZ MD ([id number]) on 01/06/2020 9:18:42 AM Referred By: Confirmed By:DIONE DOMINGUEZ MD
[2020-01-06 09:47] VITALS: BP 120/67; PULSE 66; TEMP 97.3
[2020-01-06] MEDS ORDERED: METHADONE HCL 5 MG TABLET (FOR DETOX USE ONLY) ONE (09:51)
[2020-01-06] MEDS ORDERED: METHADONE HCL 10 MG TABLET (FOR DETOX USE ONLY) ONE (09:51)
[2020-01-06] MEDS ORDERED: METHADONE (DETOX) 10 MG, METHADONE (DETOX) 5 MG PO ONE (10:00)
[2020-01-06] MEDS: PRENATAL VITAMINS W/ FOLIC ACID TABLET (FP) PO SCH (10:44)
[2020-01-06] MEDS: NICOTINE 14 MG/24 HOURS TOPICAL PATCH TD SCH (10:44)
--- NOTE | 2020-01-06 10:51 | DS ---
[facility] Detox Discharge Summary Admission Date: 01/03/20 Discharge Date: 01/06/20 - History Present History: Opioid Dependence Additional Comments: 39 years old male was admitted on 01/03/20 for opiate withdrawal sx management treated with methadone detox regiment mr mondragon prefers to leave the detox unit today that he needs to go to opiate rehab today that he has a new job waiting for him General Appearance: Yes: Moderate Distress, Tremorous HEENTM: Yes: Within Normal Limits Respiratory: Yes: Lungs Clear, Normal Breath Sounds, No Respiratory Distress Neck: Yes: Within Normal Limits Breast: Yes: Breast Exam Deferred Cardiology: Yes: Regular Rhythm, Regular Rate Abdominal: Yes: Normal Bowel Sounds, Protuberent Genitourinary: Yes: Within Normal Limits Back: Yes: Normal Inspection Musculoskeletal: Yes: Back pain, Other (bilateral leg pain) Extremities: Yes: Tremors Neurological: Yes: Within Normal Limits, Alert, Normal Mood/Affect Integumentary: Yes: Within Normal Limits Lymphatic: Yes: Within Normal Limits Pertinent Past History: time for discharge 58 minutes treatment team met with mr martins to discuss methadone regiment completion mr mondragon prefers to begin opiate recovery as early as today at [facility] - Physical Exam Results Vital Signs: Vital Signs Temperature 97.3 F L 01/06/20 08:39 Pulse Rate 66 01/06/20 08:39 Respiratory Rate 18 01/06/20 08:39 Blood Pressure 120/67 01/06/20 08:39 O2 Sat by Pulse Oximetry (%) 97 01/06/20 07:04 Pertinent Admission Physical Exam Findings: opiate withdrawal Laboratory Tests 01/03/20 01/04/20 01/04/20 21:30 07:50 07:50 WBC 7.2 RBC 5.28 Hgb 12.1 Hct 38.2 MCV 72.3 L MCH 22.9 L MCHC 31.7 L RDW 14.7 Plt Count 204 D MPV 9.1 Sodium Potassium Chloride Carbon Dioxide Anion Gap BUN Creatinine Est GFR (CKD-EPI)AfAm Est GFR (CKD-EPI)NonAf Random Glucose Calcium Total Bilirubin AST ALT Alkaline Phosphatase Total Protein Albumin Syphilis Serology Non-reactive COVID-19 ([facility]) Not detected 01/04/20 07:50 WBC RBC Hgb Hct MCV MCH MCHC RDW Plt Count MPV Sodium 142 Potassium 4.5 Chloride 109 H Carbon Dioxide 27 Anion Gap 6 L BUN 10.1 Creatinine 0.9 Est GFR (CKD-EPI)AfAm 125.13 Est GFR (CKD-EPI)NonAf 107.97 Random Glucose 88 Calcium 8.9 Total Bilirubin 0.8 AST 12 L ALT 25 Alkaline Phosphatase 76 Total Protein 6.3 L Albumin 3.5 Syphilis Serology COVID-19 ([facility]) lab noted - Treatment Hospital Course: Detox Protocol Followed, Detoxed Safely, Responded well, Discharged Condition Good, Rehab Referral Accepted Patient has Accepted a Rehab Referral to: [facility] - Medication Discharge Medications: Ambulatory Orders Naloxone HCl [Narcan] 4 mg NS ASDIR PRN #1 spray 01/06/20 - Diagnosis (1) Substance induced mood disorder Status: Suspected (2) Opioid dependence with withdrawal Status: Acute (3) Nicotine dependence, uncomplicated Status: Acute Qualifiers: Nicotine product type: cigarettes Qualified Code(s): F17.210 - Nicotine dependence, cigarettes, uncomplicated - AMA Did Patient Leave Against Medical Advice: No COWS (PN) - Opiate Withdrawal Resting Pulse: 0= [place] 80 or Below Sweatin= No chills or Flushing Restless Observation: 0= Sits Still Pupil Size: 0= Normal to Room Light Bone or Joint Aches: 1= Mild Discomfort Runny Nose/ Eye Tearin= None GI Upset > 30mins: 1= Stomach Cramp Tremor Observation of Outstretched Hands: 1= Tremor [place], Not Seen Yawning Observation: 0= None Anxiety or Irritability: 2=Irritable/Anxious Goose Flesh Skin: 0=Smooth Skin COWS Score: 5
[2020-01-07] MEDS ORDERED: METHADONE HCL 10 MG TABLET (FOR DETOX USE ONLY) PO ONE (10:00)
[2020-01-08] MEDS ORDERED: METHADONE HCL 5 MG TABLET (FOR DETOX USE ONLY) PO ONE (06:00)
== END 2020-01-06 11:20 | disposition home or self-care (01) | DRG 773 ==
LOC: YASAS 15:56 → Y3N 21:13
PROVIDERS: ADMIT Allergy & Immunology; ATTEND Allergy & Immunology
PROC: HZ2ZZZZ Detoxification Services for Substance Abuse Treatment (ICD-10-PCS; principal; 2020-01-03)
DX: F11.23 Opioid dependence with withdrawal (principal); F14.20 Cocaine dependence, uncomplicated; F17.210 Nicotine dependence, cigarettes, uncomplicated; F19.24 Other psychoactive substance dependence with psychoactive substance-induced mood disorder
CPT/HCPCS: 36415; 80053; 85027; 86780; 93005; 93010; Q0162; U0003